=== PATIENT | female | born 1980 | race Caucasian/White ===

== ENCOUNTER 2023-11-22 07:42 | Day surgery (SDC) | payer BC, SELFPAY ==
[2023-11-16 14:26] LABS: Hematocrit 43.3 % (37-47); Hemoglobin 13.8 g/dL (12.0-15.0); Mean Corp Hgb Conc 31.9 g/dL (32-36); Mean Platelet Vol. 9.8 fl (6.2-12.0); Platelet Count 359 K/mm3 (150-450); RBC Distribution Width CV 12.8 % (11.6-14.6); RBC Distribution Width SD 40.8 fl (35.1-43.9); Red Blood Count 4.92 M/mm3 (4.2-5.4); White Blood Count 7.3 K/mm3 (4.4-11.0)
[2023-11-16 14:47] LABS: Magnesium 2.1 mg/dL (1.6-2.6)
[2023-11-22] VITALS (10 sets, daily range): BP systolic 84–106; BP diastolic 46–92; PULSE 61–82; RESP 16; TEMP 36.1–36.8; O2SAT 97–100; BMI 26.7
--- OUTSIDE RECORDS SUMMARY | 2023-11-22 08:10 | XMS RPT_ITS | CCD ---
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 0.58 - 0.96 mg/dL Final Estimated Glomerular Filtration Rate Date Value Ref Range Status 07/11/2023 102 >=60 mL/min/1.73m? Final Comment: Estimated Glomerular Filtration Rate (eGFR) is calculated using the 2020 CKD-EPI creatinine equation. This equation utilizes serum creatinine, sex, and age as parameters. The creatinine assay has traceable calibration to isotope dilution-mass spectrometry. Refer to KDIGO guidelines for clinical interpretation. In patients with unstable renal function, e.g. those with acute kidney injury, the eGFR may not accurately reflect actual GFR. eGFR- Date Value Ref Range Status 01/05/2021 >60 Final P.O.C.T. RESULTS: POC done: Yes, See Lab Tab October 04, 2023 TREATMENT: N/A PERIPHERAL IV DATA: Ambulatory: A peripheral IV was started in the Left antecubital site with a Angio cath: 18 gauge. RADIOLOGY DEPARTMENT: CT; Exam(s) Completed: CTA Brain and CTA Neck SIGNATURE: RT Rigoberto(R) PATIENT NAME: Merlene Hdz DATE: October 04, 2023 TIME: 4:18 PM [facility] 10-04-2023 History of Presen t illness Narrative Radiology Service Progress Note DATE OF SERVICE: October 04, 2023 TIME: 4:18 PM PATIENT IDENTITY VERIFICATION COMPLETED USING TWO (2) STANDARD IDENTIFIERS: Name and Date of confirmed by patient verbally. FALL SCREENING: Has the patient had 2 falls in the last year or 1 fall with injury or currently using an Ambulatory Assistive Device (Walker, Cane, Wheelchair, Crutches, etc.)? No PATIENT GENDER DATA: Female. status: : No status: NO. PATIENT RELEVANT IMPLANT DATA REVIEWED: Yes ALLERGIES: Reviewed and unchanged CONTRAST ALLERGY: NO. EXAM: CT -CONTRAST INDUCED NEPHROPATHY RISK FACTORS: Not applicable CREATININE: Creatinine Date Value Ref Range Status 07/11/2023 0.75 0.58 - 0.96 mg/dL Final 08/07/2022 0.78 0.58 - 0.96 mg/dL Final 01/05/2021 0.85 0.58 - 0.96 mg/dL Final Estimated Glomerular Filtration Rate Date Value Ref Range Status 07/11/2023 102 >=60 mL/min/1.73m Final Comment: Estimated Glomerular Filtration Rate (eGFR) is calculated using the 2020 CKD-EPI creatinine equation. This equation utilizes serum creatinine, sex, and age as parameters. The creatinine assay has traceable calibration to isotope dilution-mass spectrometry. Refer to KDIGO guidelines for clinical interpretation. In patients with unstable renal function, e.g. those with acute kidney injury, the eGFR may not accurately reflect actual GFR. eGFR- Date Value Ref Range Status 01/05/2021 >60 Final P.O.C.T. RESULTS: POC done: Yes, See Lab Tab October 04, 2023 TREATMENT: N/A PERIPHERAL IV DATA: Ambulatory: A peripheral IV was started in the Left antecubital site with a Angio cath: 18 gauge. RADIOLOGY DEPARTMENT: CT; Exam(s) Completed: CTA Brain and CTA Neck SIGNATURE: RT Rigoberto(R) PATIENT NAME: Merlene Hdz DATE: October 04, 2023 TIME: 4:18 PM documented in this encounter [facility] 10-03-2023 Note HNO ID: [id number] Author: Ines Wylie MD Service: ? Author Type: Physician Type: Progress Notes Filed: 10/03/2023 10:57 AM Note Text: Merlene is a 43 year old who presents today for an endometrial biopsy for abnormal uterine bleeding. test: negative UNIVERSAL PROTOCOL / SAFETY CHECKLIST Procedure to be Performed: endometrial biopsy Sign In: A Moment of CARE was completed. Personnel directly involved with the procedure wore the appropriate PPE (Personal Protective Equipment). Patient/Surrogate Stated/Verified: PATIENT VERIFIED(optional for EMERGENT procedures): Patient name, Date of , Relevant allergies, and The intended procedure Time Out Communication: Intended patient and procedure match the source documents. Consent documented and matches the intended procedure. Relevant labs, photos, and/or imaging studies have been reviewed. Sign Out: SIGN OUT (optional for EMERGENT procedures): All specimen containers correctly labeled. All instruments, equipment, possible retained foreign bodies accounted for. Post-procedure follow-up management communicated and Plan of Care Visit completed when applicable. Ines Wylie M.D. PROCEDURE: EXTERNAL GENITALIA: Normal in appearance without lesions VAGINA: Normal in appearance without lesions BIOPSY: Speculum placed into the vagina with excellent visualization of the cervix. Cervix cleaned with betadine. Anterior lip of cervix grasped with single toothed tenaculum. Uterus sounded to 8 cm. Pipelle inserted into the uterus without difficulty and endometrial biopsy obtained. Specimen labeled and sent to pathology. Procedure Summary: Patient tolerated procedure well. ASSESSMENT: abnormal uterine bleeding PLAN: Specimens labeled and sent to Pathology. Will notify patient of results in 1-2 weeks. Post-procedure instructions reviewed and written material given to the patient. consult to urogyn for prolapse, plans hyst for heavy bleeding but I d/w her may need some prolapse repair also Ines Wylie MD [facility] 10-03-2023 Note HNO ID: [id number] Author: Mckenzie Jung RDMS Service: ? Author Type: Commercial Intelligence Manager Type: Progress Notes Filed: 10/03/2023 4:16 PM Note Text: Radiology Service Progress Note PATIENT NAME: Merlene Hdz DATE OF SERVICE: October 03, 2023 TIME: 4:16 PM PATIENT IDENTITY VERIFICATION COMPLETED USING TWO (2) IDENTIFIERS: Name and Date of confirmed by patient verbally. FALL SCREENING: Has the patient had 2 falls in the last year or 1 fall with injury or currently using an Ambulatory Assistive Device (Walker, Cane, Wheelchair, Crutches, etc.)? No PATIENT GENDER DATA: Female. status: : No status: NO. PATIENT RELEVANT IMPLANT DATA REVIEWED: Not Applicable RADIOLOGY DEPARTMENT: Ultrasound PERIPHERAL IV DATA: Not applicable SIGNED BY: Mckenzie Jung RDMS RVT October 03, 2023 4:16 PM [facility] 10-03-2023 Instructions Nguyne Mckeon Ma - 10/03/2023 10:23 AM EST YOUR RECOVERY After your biopsy you may have: Vaginal bleeding (less than a normal menstrual period) Mild cramping Do NOT put anything in the vagina for 1 week after your endometrial biopsy. This includes: tampons douches and refraining from having sexual intercourse If you have any discomfort, you may take an over the counter pain medication (motrin, advil, ibuprofen, tylenol, etc). If this does not relieve your discomfort, contact the office. It is okay to wear a sanitary pad until the discharge and spotting stops. RISKS Although problems seldom occur with endometrial biopsies, there can be some complications. You may feel faint during and shortly after the procedure as well as have some bleeding after the procedure. There is also a risk of infection after the procedure. These complications are rare and can be easily treated. You should contact you doctor is you have any of the following: Heavy bleeding (more than your normal period) Bleeding with clots Severe abdominal pain Fever (more than 100.4F) Foul smelling vaginal discharge RESULTS We will have the results of your biopsy in 1-2 weeks. If you do not hear the results of your biopsy after 2 weeks, please contact the office for the results. If you have any additional questions or concerns please do not hesitate to contact the office. documented in this encounter [facility] 10-03-2023 History of Presen t illness Narrative Merlene is a 43 year old who presents today for an endometrial biopsy for abnormal uterine bleeding. test: negative UNIVERSAL PROTOCOL / SAFETY CHECKLIST Procedure to be Performed: endometrial biopsy Sign In: A Moment of CARE was completed. Personnel directly involved with the procedure wore the appropriate PPE (Personal Protective Equipment). Patient/Surrogate Stated/Verified: PATIENT VERIFIED(optional for EMERGENT procedures): Patient name, Date of , Relevant allergies, and The intended procedure Time Out Communication: Intended patient and procedure match the source documents. Consent documented and matches the intended procedure. Relevant labs, photos, and/or imaging studies have been reviewed. Sign Out: SIGN OUT (optional for EMERGENT procedures): All specimen containers correctly labeled. All instruments, equipment, possible retained foreign bodies accounted for. Post-procedure follow-up management communicated and Plan of Care Visit completed when applicable. Ines Wylie M.D. PROCEDURE: EXTERNAL GENITALIA: Normal in appearance without lesions VAGINA: Normal in appearance without lesions BIOPSY: Speculum placed into the vagina with excellent visualization of the cervix. Cervix cleaned with betadine. Anterior lip of cervix grasped with single toothed tenaculum. Uterus sounded to 8 cm. Pipelle inserted into the uterus without difficulty and endometrial biopsy obtained. Specimen labeled and sent to pathology. Procedure Summary: Patient tolerated procedure well. ASSESSMENT: abnormal uterine bleeding PLAN: Specimens labeled and sent to Pathology. Will notify patient of results in 1-2 weeks. Post-procedure instructions reviewed and written material given to the patient. consult to urogyn for prolapse, plans hyst for heavy bleeding but I d/w her may need some prolapse repair also Ines Wylie MD documented in this encounter [facility] 10-03-2023 History of Presen t illness Narrative Radiology Service Progress Note PATIENT NAME: Merlene Hdz DATE OF SERVICE: October 03, 2023 TIME: 4:16 PM PATIENT IDENTITY VERIFICATION COMPLETED USING TWO (2) IDENTIFIERS: Name and Date of confirmed by patient verbally. FALL SCREENING: Has the patient had 2 falls in the last year or 1 fall with injury or currently using an Ambulatory Assistive Device (Walker, Cane, Wheelchair, Crutches, etc.)? No PATIENT GENDER DATA: Female. status: : No status: NO. PATIENT RELEVANT IMPLANT DATA REVIEWED: Not Applicable RADIOLOGY DEPARTMENT: Ultrasound PERIPHERAL IV DATA: Not applicable SIGNED BY: Mckenzie Jung RDMS T October 03, 2023 4:16 PM documented in this encounter [facility] 09-10-2023 Note HNO ID: [id number] Author: Ines Wylie MD Service: ? Author Type: Physician Type: Progress Notes Filed: 09/10/2023 8:49 AM Note Text: Merlene is a 43 year old who presents for an annual gynecologic exam without complaints for hand mixer. Had breast f/u mammogram and next f/u in 6 months. Some pelvic pressure and fee3ls like prolapse is a little worse Has had some unusual METZ and sensation but now has to get f/u for a cyst in the brain. Menses: cycles every 28 days and 7 days of flow. 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 Depression (non-psychotic) Endometriosis history of ruptured lesion on ovary many years ago Lump or mass in breast Mastitis Seasonal allergies PAST SURGICAL HISTORY Procedure Laterality Date BX BREAST PERC NEED W/GUID 04/24/2012 U/S needle core outer mid right breast COLPOSCOPY CERVIX UPPER/ADJACENT VAGINA Colposcopy LAPS SURG CHOLECYSTECTOMY W/CHOLANGIOGRAPHY 10/29/2012 PAST SURGICAL HISTORY OF WISDOM TEETH PAST SURGICAL HISTORY OF Bilateral skin lesion leg, pea-sized lesion SKIN SURGERY HX Right distal anterior thigh, likely a lipoma FAMILY HISTORY Problem Relation Age of Onset No Known Problems Mother Diabetes Father Hypertension Father Coronary Artery Disease Father Heart Father Colon Cancer Father age 70, stage 3, in remission other (Adelia Gehrig) Maternal Grandmother Heart disease Maternal Grandfather Heart disease Paternal Grandmother Breast Cancer Paternal Aunt 40 SOCIAL HISTORY Social History Tobacco Use Smoking status: Never Smokeless tobacco: Never Vaping Use Vaping Use: Never used Substance Use Topics Alcohol use: Yes Comment: very rarely Drug use: No REVIEW OF SYSTEMS Abdomen: No abdominal pain, nausea, vomiting, diarrhea, or constipation. No bloating, early satiety, indigestion, or increased flatulence. Bladder: No dysuria, gross hematuria, urinary frequency, urinary urgency, or incontinence. Breast: No breast lumps, nipple d/c, overlying skin changes, redness or skin retraction. Allergies and current medication updated:Yes EXAM: BP 102/68 Ht 5' 2 (1.58m) Wt 141 lb (64.0kg) LMP 09/02/2023 BMI 25.78 kg/(m2). GENERAL: pleasant, female in no apparent distress HEENT: Normocephalic, atraumatic, mucus membranes moist, and no lesions NECK: Supple, full range of motion, no adenopathy, and thyroid normal DERMATOLOGY: Normal, without lesions, non-icteric, and non-hirsute BREAST: soft, non-tender, symmetric, no dominant mass, normal nipple-areolar complex, no lymphadenopathy, and no nipple discharge CHEST: Normal inspiratory effort ABDOMEN: soft, non-tender, and no masses PELVIC: external genitalia normal, normal Bartholin's glands, urethra, [place]'s glands, no vulvar lesions, no cervical lesions, physiologic discharge present, normal appearing perineal body and perianal region, cystocele 2nd degree, cervical prolapse 2nd degree BIMANUAL: uterus normal size, shape and consistency, no adnexal masses, and non-tender RECTOVAGINAL: deferred. NEURO: alert and oriented x3,exam grossly non-focal EXTREMITIES: normal ASSESSMENT/PLAN: 1) Health maintenance: Pap done with HPV. Mammogram ordered. 2) Contraception: vasectomy. Contraceptive options reviewed and information provided. 3) STD screening: Declined STD check. 4) Follow up one year or sooner as needed Ines Wylie MD [facility] 09-10-2023 History of Presen t illness Narrative Merlene is a 43 year old who presents for an annual gynecologic exam without complaints for hand mixer. Had breast f/u mammogram and next f/u in 6 months. Some pelvic pressure and fee3ls like prolapse is a little worse Has had some unusual METZ and sensation but now has to get f/u for a cyst in the brain. Menses: cycles every 28 days and 7 days of flow. 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 Depression (non-psychotic) Endometriosis history of ruptured lesion on ovary many years ago Lump or mass in breast Mastitis Seasonal allergies PAST SURGICAL HISTORY Procedure Laterality Date BX BREAST PERC NEED W/GUID 04/24/2012 U/S needle core outer mid right breast COLPOSCOPY CERVIX UPPER/ADJACENT VAGINA Colposcopy LAPS SURG CHOLECYSTECTOMY W/CHOLANGIOGRAPHY 10/29/2012 PAST SURGICAL HISTORY OF WISDOM TEETH PAST SURGICAL HISTORY OF Bilateral skin lesion leg, pea-sized lesion SKIN SURGERY HX Right distal anterior thigh, likely a lipoma FAMILY HISTORY Problem Relation Age of Onset No Known Problems Mother Diabetes Father Hypertension Father Coronary Artery Disease Father Heart Father Colon Cancer Father age 70, stage 3, in remission other (Adelia Gehrig) Maternal Grandmother Heart disease Maternal Grandfather Heart disease Paternal Grandmother Breast Cancer Paternal Aunt 40 SOCIAL HISTORY Social History Tobacco Use Smoking status: Never Smokeless tobacco: Never Vaping Use Vaping Use: Never used Substance Use Topics Alcohol use: Yes Comment: very rarely Drug use: No REVIEW OF SYSTEMS Abdomen: No abdominal pain, nausea, vomiting, diarrhea, or constipation. No bloating, early satiety, indigestion, or increased flatulence. Bladder: No dysuria, gross hematuria, urinary frequency, urinary urgency, or incontinence. Breast: No breast lumps, nipple d/c, overlying skin changes, redness or skin retraction. Allergies and current medication updated:Yes EXAM: BP 102/68 Ht 5' 2 (1.58m) Wt 141 lb (64.0kg) LMP 09/02/2023 BMI 25.78 kg/(m^2). GENERAL: pleasant, female in no apparent distress HEENT: Normocephalic, atraumatic, mucus membranes moist, and no lesions NECK: Supple, full range of motion, no adenopathy, and thyroid normal DERMATOLOGY: Normal, without lesions, non-icteric, and non-hirsute BREAST: soft, non-tender, symmetric, no dominant mass, normal nipple-areolar complex, no lymphadenopathy, and no nipple discharge CHEST: Normal inspiratory effort ABDOMEN: soft, non-tender, and no masses PELVIC: external genitalia normal, normal Bartholin's glands, urethra, [place]'s glands, no vulvar lesions, no cervical lesions, physiologic discharge present, normal appearing perineal body and perianal region, cystocele 2nd degree, cervical prolapse 2nd degree BIMANUAL: uterus normal size, shape and consistency, no adnexal masses, and non-tender RECTOVAGINAL: deferred. NEURO: alert and oriented x3,exam grossly non-focal EXTREMITIES: normal ASSESSMENT/PLAN: 1) Health maintenance: Pap done with HPV. Mammogram ordered. 2) Contraception: vasectomy. Contraceptive options reviewed and information provided. 3) STD screening: Declined STD check. 4) Follow up one year or sooner as needed Ines Wylie MD documented in this encounter [facility] 09-04-2023 Note HNO ID: [id number] Author: Mckenzie Jung RDMS Service: ? Author Type: Commercial Intelligence Manager Type: Progress Notes Filed: 09/04/2023 3:14 PM Note Text: Radiology Service Progress Note PATIENT NAME: Merlene Hdz DATE OF SERVICE: September 04, 2023 TIME: 3:14 PM PATIENT IDENTITY VERIFICATION COMPLETED USING TWO (2) IDENTIFIERS: Name and Date of confirmed by patient verbally. FALL SCREENING: Has the patient had 2 falls in the last year or 1 fall with injury or currently using an Ambulatory Assistive Device (Walker, Cane, Wheelchair, Crutches, etc.)? No PATIENT GENDER DATA: Female. status: : No status: NO. PATIENT RELEVANT IMPLANT DATA REVIEWED: Not Applicable RADIOLOGY DEPARTMENT: Ultrasound PERIPHERAL IV DATA: Not applicable SIGNED BY: Mckenzie Jung RDMS RVT September 04, 2023 3:14 PM [facility] 09-04-2023 Miscellaneous Notes Mammogram appeared ok. They would like repeat views in six months to ensure is ok. Orders placed documented in this encounter [facility] 08-30-2023 Note HNO ID: [id number] Author: Kendra Fair APRN.STILL PHOTOGRAPHER Service: ? Author Type: Nurse Practitioner Type: Progress Notes Filed: 08/30/2023 9:00 AM Note Text: Authorization [id number] for CTA neck Given the fact nothing was palpable on exam the note said rule out vascular cause the CT soft tissue of the neck was not approved, but the reviewer did approve a CTA of the neck. Dr. Jones-If you want this it will have to be reordered. The reviewer did recommend if you want to rule out a soft tissue mass then ultrasound soft tissue neck would be appropriate. Patient Information Patient Last Name Wilder Patient First Name Merlene Date of 1980 Clinical Clearance / Financial Clearance Status Pending Clinical Clearance Notifications are supported by our caleb policy and used when an immediate payer source is not available. The CCN process can allow cases to be completed while still working to obtain payer?s authorization due to urgency or medical necessity. This process should not preclude us from completing the steps needed to secure authorization such us P2P and appeal as this will still allow us to receive the appropriate reimbursement. Denial Overview Denial Type Payer Clinical Guidelines Not Met Denial Rationale [id number] NECK SOFT TISSUE W IVCON Your doctor told us that you have neck pain. Your doctor ordered a CT scan of your neck. A CT is a way to take pictures of the inside of your body. This test should be used when your doctor is looking for certain conditions. These might include certain infections or tumors. We reviewed the notes we have. The notes do not show that your doctor is looking for one of these conditions. Based on the information we have, this test is not medically necessary. [id number] CHEST W IVCON Your doctor told us that you have chest pain. Your doctor ordered a CT scan of your chest. A CT is a way to take pictures of the inside of your body. This test should be used when your doctor is looking for a specific condition. These conditions might include a collapsed lung or fluid collection around the lungs. We reviewed the notes we have. The notes do not show that your doctor is looking for one of these conditions. Based on the information we have, this test is not medically necessary. We used [facility] Medical Benefits Management Clinical Guideline titled Imaging of the Chest to make this decision. You may view this guideline at [email or web address]- radiology. Date of Service 09/12/2023 Is Peer to Peer Available? (Instructions below) Yes Peer to Peer Deadline 30 calendar days from denial date on: 08/27/2023 Appeal Deadline (Instructions below) 180 calendar days from the denial date on: 08/27/2023 Insurance Case Information Insurance Name Jean Patient's Insurance Case# [id number] Ordering Provider ALICIA JONES Approved Services N/A Denied Services [id number] NECK SOFT TISSUE W IVCON [id number] CHEST W IVCON Alternative Recommendation N/A *Service which can be approved in place of denied service. Clinical Documentation Provided Not listed. Peer to Peer Instructions Peer to Peer Does Peer to Peer need to be scheduled? No, it can be done right away Who can complete the Peer to Peer? , PA, HOUSE[employer]OLD RE[employer]ATION MECHANIC, LN Additional Peer to Peer Instructions You can call for the peer to peer at the date and time of your convenience Appeal Instructions Appeal Ph#: [phone]: Ask to be transferred to appeals department and leave a voice mail requesting a call back to initiate the appeals process. Leave Member ID, NAME and along with contact name and call back number and nurse in the appeals team will call back. Appeal Required Form(s) No. Additional Appeal Instructions Appeal needs to be initiated by phone first. If required, when sending the fax, send it attention to: Appeals department. Include: coversheet with patient's and case information, a formal appeal letter and attach any pertinent supporting clinical documentation. Facility Information Location [facility] [id number] Tax ID# [facility] 08-30-2023 History of Presen t illness Narrative Authorization [id number] for CTA neck Given the fact nothing was palpable on exam the note said rule out vascular cause the CT soft tissue of the neck was not approved, but the reviewer did approve a CTA of the neck. Dr. Jones-If you want this it will have to be reordered. The reviewer did recommend if you want to rule out a soft tissue mass then ultrasound soft tissue neck would be appropriate. Patient Information Patient Last Name Wilder Patient First Name Merlene Date of 1980 Clinical Clearance / Financial Clearance Status Pending Clinical Clearance Notifications are supported by our caleb policy and used when an immediate payer source is not available. The CCN process can allow cases to be completed while still working to obtain payer s authorization due to urgency or medical necessity. This process should not preclude us from completing the steps needed to secure authorization such us P2P and appeal as this will still allow us to receive the appropriate reimbursement. Denial Overview Denial Type Payer Clinical Guidelines Not Met Denial Rationale [id number] NECK SOFT TISSUE W IVCON Your doctor told us that you have neck pain. Your doctor ordered a CT scan of your neck. A CT is a way to take pictures of the inside of your body. This test should be used when your doctor is looking for certain conditions. These might include certain infections or tumors. We reviewed the notes we have. The notes do not show that your doctor is looking for one of these conditions. Based on the information we have, this test is not medically necessary. [id number] CHEST W IVCON Your doctor told us that you have chest pain. Your doctor ordered a CT scan of your chest. A CT is a way to take pictures of the inside of your body. This test should be used when your doctor is looking for a specific condition. These conditions might include a collapsed lung or fluid collection around the lungs. We reviewed the notes we have. The notes do not show that your doctor is looking for one of these conditions. Based on the information we have, this test is not medically necessary. We used [facility] Benefits Management Clinical Guideline titled Imaging of the Chest to make this decision. You may view this guideline at [email or web address]- radiology. Date of Service 09/12/2023 Is Peer to Peer Available? (Instructions below) Yes Peer to Peer Deadline 30 calendar days from denial date on: 08/27/2023 Appeal Deadline (Instructions below) 180 calendar days from the denial date on: 08/27/2023 Insurance Case Information Insurance Name Jean Patient's Insurance Case# [id number] Ordering Provider ALICIA JONES Approved Services N/A Denied Services [id number] NECK SOFT TISSUE W IVCON [id number] CHEST W IVCON Alternative Recommendation N/A *Service which can be approved in place of denied service. Clinical Documentation Provided Not listed. Peer to Peer Instructions Peer to Peer Does Peer to Peer need to be scheduled? No, it can be done right away Who can complete the Peer to Peer? Dr, PA, [employer]IC, LN Additional Peer to Peer Instructions You can call for the peer to peer at the date and time of your convenience Appeal Instructions Appeal Ph#: [phone]: Ask to be transferred to appeals department and leave a voice mail requesting a call back to initiate the appeals process. Leave Member ID, NAME and along with contact name and call back number and nurse in the appeals team will call back. Appeal Required Form(s) No. Additional Appeal Instructions Appeal needs to be initiated by phone first. If required, when sending the fax, send it attention to: Appeals department. Include: coversheet with patient's and case information, a formal appeal letter and attach any pertinent supporting clinical documentation. Facility Information Location [facility] [id number] Tax ID# documented in this encounter [facility] 08-15-2023 Note HNO ID: [id number] Author: Alicia Jones MD Service: ? 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 She presented with increased pressure sensation in the R neck into the head, not described as a headache. She also noted some pressure in the right upper chest. She also blurred vision in the morning worse with menses to her PCP Dr. Wahl on 07/11/2023. 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 She was referred to neurosurgery and via triage is routed instead to Neuro-Oncology. Had CT Head in 2004 but images are not available for review. Feels her balance has been off. She notes AM blurry vision goes away after being up for a while. Typically doesn't get headaches unless allergy-related. She has had that pressure in the R neck since at least May 2023. Feels like her head is going to pop off, like someone is squeezing her, nothing ameliorates it. Frequency of this is NOT related to menses, as she didn't have it with last cycle. Might be walking and then gets it, doesn't interfere with walking. Lasts no more than a day. One night it woke her up. Sometimes feels pressure in chest, maybe muscular. Uses heating pad daily for neck strain. PAST MEDICAL HISTORY Diagnosis Date Abnormal glandular Papanicolaou smear of cervix 2002 Abn. 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, required blood patch x 2 Dysthymic disorder Depression (non-psychotic) Endometriosis history of ruptured lesion on ovary many years ago Lump or mass in breast Mastitis Seasonal allergies PAST SURGICAL HISTORY Procedure Laterality Date BX BREAST PERC NEED W/GUID 04/24/2012 U/S needle core outer mid right breast COLPOSCOPY CERVIX UPPER/ADJACENT VAGINA Colposcopy LAPS SURG CHOLECYSTECTOMY W/CHOLANGIOGRAPHY 10/29/2012 PAST SURGICAL HISTORY OF WISDOM TEETH PAST SURGICAL HISTORY OF Bilateral skin lesion leg, pea-sized lesion SKIN SURGERY HX Right distal anterior thigh, likely a lipoma FAMILY HISTORY Problem Relation Age of Onset No Known Problems Mother Diabetes Father Hypertension Father Coronary Artery Disease Father Heart Father Colon Cancer Father age 70, stage 3, [facility] remission [facility] Maternal Grandmother Heart disease Maternal Grandfather Heart disease Paternal Grandmother Breast Cancer Paternal Aunt 40 SOCIAL HISTORY Never smoker. 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 Has two daughters and . MEDS Current Outpatient Medications on File Prior to Visit Medication Sig dextroamphetamine-amphetamine (ADDERALL) 5 mg tablet Take 1 tablet by mouth twice daily for 30 days. ALLERGIES Allergen Reactions Hayfever [Homeopath* Vit E Lotion [Other] PHYSICAL EXAM 08/15/23 0814 BP: 120/87 Pulse: 73 Resp: 18 Temp: 36.7 ?C (98 ?F) TempSrc: Oral SpO2: 99% Weight: 62.6 kg (138 lb) Height: 157.5 cm (5' 2.01 ) Body surface area is 1.65 meters squared. General: well appearing HEENT: anicteric, moist mucous membranes, without thrush. No cervical, supraclavicular, submandibular, or preotic lymphadenopathy. Cardiovascular: regular rate, extremities are warm and well perfused Abdomen: soft, Extremities: symmetric, without edema Other: no abnormality or tenderness at R chest site reported in history Neurologic: Mental status: alert and oriented. Language intact. Memory grossly intact. C.N. 2-12: Pupils are equal, round, and reactive to light. Extraocular movements intact. Facial sensation intact to light touch V1-V3. Face is symmetric. Visual landeros intact x 4. Hearing grossly intact. Tongue and palate are midline. Shoulder shrug/SCM 5/5 strength. Motor: R UExt 5/5 R LExt 5/5. ROM for R arm normal during exam. L UExt 5/5 L LExt 5/5 Sensation: normal to light touch throughout Deep tendon reflexes: 2+ in the biceps and patellar deep tendons Rapid alternating movements intact. Finger to nose: no dysmetria bilaterally. Gait: normal base, normal armswing LABS WBC (k/uL) Date Value 07/11/2023 5.91 RBC (m/uL) Date Value 07/11/2023 4.64 Hemoglobin (g/dL) Date Value 07/11/2023 13.4 Hematocrit (%) Date Value 07/11/2023 40.8 MCV (fL) Date Value 07/11/2023 87.9 MCH (pg) Date Value 07/11/2023 28.9 MCHC (g/dL) Date Value 07/11/2023 32.8 RDW-CV (%) Date Value 07/11/2023 13.2 Platelet Count (k/uL) Date Value 07/11/2023 329 MPV (fL) Date Value 07/11/2023 11.1 Glucose (mg/dL) Date Ania (more content not included)... [facility] 08-13-2023 Miscellaneous Notes Spoke to Pt, she is scheduled and confirmed for... Appt with on 08/15/2023 at 11:30 AM. Time Frame: Next available Provider: Ra Jones Dhawan Referring: Dr. Yue Wahl Dx: 7 mm subependymal nodule in the atria of the right lateral ventricle 7 mm subependymal nodule in the atria of the right lateral ventricle seen on MRI from 08/08/23 during work up for atypical headaches. Kendra Fair APRN.AVRIL 08/08/2023 3:58 PM [facility] Order Providers Authorizing Provider Encounter Provider Yue Wahl MD Lago, William J, MD Future Order Information Expires 08/07/24 Associated Diagnoses Brain mass [G93.89] Reason for Exam Priority: Routine Dx: Brain mass [G93.89 (ICD-10-CM)] Order Questions Question Answer [facility] Brain Tumor [facility] Epic access? Yes Reason For Visit nodule on MRI documented in this encounter [facility] 08-09-2023 Miscellaneous Notes Internal---Received a call from Patient DxBrain mass [G93.89] phone [phone] sent to triage team. Dr. Vish Larry is referring. documented in this encounter [facility] 08-08-2023 Note HNO ID: [id number] Author: Catie Krishnan CT Service: Radiology Author Type: [employer] Teacher Type: Progress Notes Filed: 08/08/2023 1:03 PM Note Text: Radiology Service Progress Note PATIENT NAME: Merlene Hdz DATE OF SERVICE: August 08, 2023 TIME: 1:02 PM PATIENT IDENTITY VERIFICATION COMPLETED USING TWO (2) IDENTIFIERS: Name and Date of confirmed by patient verbally. FALL SCREENING: Has the patient had 2 falls in the last year or 1 fall with injury or currently using an Ambulatory Assistive Device (Walker, Cane, Wheelchair, Crutches, etc.)? No PATIENT GENDER DATA: Female. status: : No status: NO. PATIENT RELEVANT IMPLANT DATA REVIEWED: Yes RADIOLOGY DEPARTMENT: MR; Exam(s) Completed: Head: Routine Brain PERIPHERAL IV DATA: Site assessment: Clean,Dry and Intact, Site disposition Discontinued SIGNED BY: MALIK Leiva August 08, 2023 1:02 PM [facility] 08-08-2023 Miscellaneous Notes August 09, 2023 PID: [id number] Merlene Hdz [address] [place] [address] Dear Ms. Hdz, Your recent breast imaging exam on 08/07/2023 showed a possible finding that requires additional imaging studies for a complete evaluation. Most such findings are probably benign (not cancer). Your mammogram demonstrates that you have dense breast tissue, which could hide abnormalities. Dense breast tissue, in and of itself, is a relatively common condition. Therefore, this information is not provided to cause undue concern; rather, it is to raise your awareness and promote discussion with your health care provider regarding the presence of dense breast tissue in addition to other risk factors. If you have a healthcare provider who ordered/prescribed your screening mammogram: Please call [phone] or [phone]: [phone] to schedule an appointment for your additional imaging (if you have not already done so). If you DO NOT have a healthcare provider (ie you did not have an order/prescription for your screening mammogram): Please call to schedule an appointment for your additional imaging (if you have not already done so). You must have an order/prescription from your physician when calling to schedule your appointment. If your order/prescription is not electronic, you must bring the hard copy with you on the day of your exam to avoid delays. Your imaging studies and reports are kept on file at [facility] as part of your permanent medical record, and are available for your continuing care. Thank you for allowing us to help in meeting your health care needs. Sincerely, Dr. Lee Interpreting Radiologist [facility] (Additional imaging) documented in this encounter [facility] 08-08-2023 History of Presen t illness Narrative Radiology Service Progress Note PATIENT NAME: Merlene Hdz DATE OF SERVICE: August 08, 2023 TIME: 1:02 PM PATIENT IDENTITY VERIFICATION COMPLETED USING TWO (2) IDENTIFIERS: Name and Date of confirmed by patient verbally. FALL SCREENING: Has the patient had 2 falls in the last year or 1 fall with injury or currently using an Ambulatory Assistive Device (Walker, Cane, Wheelchair, Crutches, etc.)? No PATIENT GENDER DATA: Female. status: : No status: NO. PATIENT RELEVANT IMPLANT DATA REVIEWED: Yes RADIOLOGY DEPARTMENT: MR; Exam(s) Completed: Head: Routine Brain PERIPHERAL IV DATA: Site assessment: Clean,Dry and Intact, Site disposition Discontinued SIGNED BY: MALIK Leiva August 08, 2023 1:02 PM documented in this encounter [facility] 08-08-2023 Nurse Note Radiology Service Progress Note DATE OF SERVICE: August 08, 2023 TIME: 1:06 PM PATIENT WEIGHT: 137 LBS PATIENT IDENTITY VERIFICATION COMPLETED USING TWO (2) STANDARD IDENTIFIERS: Name and Date of confirmed by patient verbally. FALL SCREENING: Has the patient had 2 falls in the last year or 1 fall with injury or currently using an Ambulatory Assistive Device (Walker, Cane, Wheelchair, Crutches, etc.)? No PATIENT GENDER DATA: Female. status: : No status: NO. ALLERGIES: Reviewed and unchanged CONTRAST ALLERGY: No EXAM: MRI - CONTRAST TYPE: GROUP II IV SITE: Ambulatory: A peripheral IV was started in the Right antecubital site with a Angio cath: 22 gauge. IV SITE APPEARANCE: Clean,Dry and Intact SIGNATURE: Glendy Stratton RN PATIENT NAME: Merlene Hdz DATE: August 08, 2023 TIME: 1:06 PM documented in this encounter [facility] 08-07-2023 Note HNO ID: [id number] Author: Marci Fox Mammo Tech Service: ? Author Type: [employer] Teacher Type: Progress Notes Filed: 08/07/2023 2:52 PM Note Text: Radiology Service Progress Note PATIENT NAME: Merlene Hdz DATE OF SERVICE: August 07, 2023 TIME: 2:27 PM PATIENT IDENTITY VERIFICATION COMPLETED USING TWO (2) IDENTIFIERS: Name and Date of confirmed by patient verbally. FALL SCREENING: Has the patient had 2 falls in the last year or 1 fall with injury or currently using an Ambulatory Assistive Device (Walker, Cane, Wheelchair, Crutches, etc.)? No PATIENT GENDER DATA: Female. status: : No status: NO. PATIENT RELEVANT IMPLANT DATA REVIEWED: Not Applicable RADIOLOGY DEPARTMENT: Mammography PERIPHERAL IV DATA: Not applicable SIGNED BY: Alisa Petersen August 07, 2023 2:27 PM [facility] 08-07-2023 Miscellaneous Notes Detailed message left for pt No need to wait as long as no surgical clip to christy biopsy was placed in past. Thanks, Abram Holly PA-C MRI is magnetic, not radiation if that is her concern. Pt calling to check on the following. Pt had an MRI done on 08-03-23 and has another one scheduled for 08/08/23. She has a mammogram scheduled for this afternoon. Is it okay to have this done or pt is asking if she should wait to have mammogram done. Please advise pt. Rosi Philippe LPN documented in this encounter [facility] 08-06-2023 Miscellaneous Notes PSS please help set up if patient has not already scheduled. Needs additional mri with contrast. Patient notified. Please set up. documented in this encounter [facility] 08-03-2023 Note HNO ID: [id number] Author: Kelly Aviles RT(R) Service: Radiology Author Type: Technologist Type: Progress Notes Filed: 08/03/2023 1:42 PM Note Text: Radiology Service Progress Note PATIENT NAME: Merlene Hdz DATE OF SERVICE: August 03, 2023 TIME: 1:42 PM PATIENT IDENTITY VERIFICATION COMPLETED USING TWO (2) IDENTIFIERS: Name and Date of confirmed by patient verbally and Name and Date of confirmed by identification band. FALL SCREENING: Has the patient had 2 falls in the last year or 1 fall with injury or currently using an Ambulatory Assistive Device (Walker, Cane, Wheelchair, Crutches, etc.)? No PATIENT GENDER DATA: Female. status: : No status: NO. PATIENT RELEVANT IMPLANT DATA REVIEWED: Yes RADIOLOGY DEPARTMENT: MR; Exam(s) Completed: Head: Routine Brain PERIPHERAL IV DATA: Not applicable SIGNED BY: RT Tono(R) August 03, 2023 1:42 PM [facility] 07-11-2023 Note HNO ID: [id number] Author: Surekha Braswell RT(R) Service: Radiology Author Type: Technologist Type: Progress Notes Filed: 07/11/2023 3:13 PM Note Text: Radiology Service Progress Note PATIENT NAME: Merlene Hdz DATE OF SERVICE: July 11, 2023 TIME: 2:59 PM PATIENT IDENTITY VERIFICATION COMPLETED USING TWO (2) IDENTIFIERS: Name and Date of confirmed by patient verbally. FALL SCREENING: Has the patient had 2 falls in the last year or 1 fall with injury or currently using an Ambulatory Assistive Device (Walker, Cane, Wheelchair, Crutches, etc.)? No PATIENT GENDER DATA: Female. status: : No status: NO. PATIENT RELEVANT IMPLANT DATA REVIEWED: Yes RADIOLOGY DEPARTMENT: General X-ray: Exam(s) Completed: Spine X-Ray(s): Cervical AP / LAT / OBL PERIPHERAL IV DATA: Not applicable SIGNED BY: RT Heri(R) July 11, 2023 2:59 PM [facility] 07-11-2023 Note HNO ID: [id number] Author: Yue Wahl MD Service: ? Author Type: Physician Type: Progress Notes Filed: 07/11/2023 2:32 PM Note Text: Patient presents with: Neck Pain: Necj pain and pressure in her head HPI: Patient presents today for office visit for an acute visit. Has had a few spells on and off for several months. Comes and goes. She wonders if some of it starts around her cycle. Feels like her head feels upside down like it is hanging off of a bed. Feels like blood is rushing to her head . Not a really a headache. Is not severe. Sometimes gets blurred vision with it in the am. That part lasts for 20 minutes. Does not get the vision issues with the head krishnamurthy . Looks like vision is wavery. Feels like if she rubs her eyes it would go away but does not. No head injury. No focal numbness or weakness. No speech issues. No flashes of light. No real changes with advil or aleve but it is not painful, just feels different. No memory issues that are new but does not feel out it. Does have chronic neck issues. No neck injury. She thinks it is due to bad posture. She saw chiropractic for the neck a few years ago. She does get occasional right sided chest discomfort. Wears a posture brace that irritates things. Feels like a straining. That is the side her neck bothers her. No radicular symptoms. Is sore to palpitation on her chest wall and shoulder. No left sided chest pain with exertion. No cough or shortness of breath. No pleuritic component. Does get chronic headaches MEDICATIONS: Current Outpatient Medications Medication Sig dextroamphetamine-amphetamine (ADDERALL) 5 mg tablet Take 1 tablet by mouth twice daily for 30 days. No current facility-administered medications for this visit. ALLERGIES: ALLERGIES Allergen Reactions Hayfever [Homeopath* Vit E Lotion [Other] PAST MEDICAL HISTORY Diagnosis Date Abnormal glandular Papanicolaou smear of cervix 2002 Abn. Pap smear (cervix) Dysthymic disorder Depression (non-psychotic) Lump or mass in breast Mastitis Seasonal allergies PAST SURGICAL HISTORY Procedure Laterality Date BX BREAST PERC NEED W/GUID 04/24/12 U/S needle core outer mid right breast COLPOSCOPY CERVIX UPPER/ADJACENT VAGINA Colposcopy LAPS SURG CHOLECYSTECTOMY W/CHOLANGIOGRAPHY 10/29/12 PAST SURGICAL HISTORY OF WISDOM TEETH PAST SURGICAL HISTORY OF skin lesion leg-- avm FAMILY HISTORY Problem Relation Age of Onset Diabetes Father Hypertension Father Coronary Artery Disease Father Heart Father Colon Cancer Father age 70 Cancer Maternal Grandmother Breast Cancer Paternal Aunt AND paternal GM - both in their 40's other (Other) Paternal Aunt No hand mixer cancer Social History Tobacco Use Smoking status: Never Smokeless tobacco: Never Substance Use Topics Alcohol use: Yes Comment: very rarely Drug use: No Reviewed current medications, allergies, past medical history, surgical history, family history and social history today. REVIEW OF SYSTEMS All other reviewed and negative other than HPI. VITALS: BP 122/72 Pulse 67 Resp 16 Wt 62.3 kg (137 lb 6.4 oz) LMP 02/14/2021 (Within Days) SpO2 98% BMI 25.13 kg/m? Last 4 Encounter Wt Readings: Date: Wt: 07/11/2023 62.3 kg (137 lb 6.4 oz) 02/20/2023 61.2 kg (135 lb) 05/09/2022 57.6 kg (127 lb) 03/11/2021 59 kg (130 lb) PHYSICAL EXAMINATION: General appearance: Well appearing, alert, in no acute distress, well-hydrated, well nourished. Skin: Skin color, texture, turgor normal, no suspicious rashes or lesions Head: Normocephalic, no masses, lesions, tenderness or abnormalities Eyes: Anicteric sclera. Pupils are equally round and reactive to light. Extraocular movements are intact. Ears: External ears normal, canals clear Nose/Sinuses: Nares normal, septum midline, mucosa normal, no drainage or sinus tenderness Oropharynx: Lips, mucosa, and tongue normal, teeth and gums normal, oropharynx normal Neck: Supple, no adenopathy; thyroid symmetric, normal size, no bruits Back: Normal exam Lungs: Lungs clear to auscultation. No wheezing, rhonchi, rales Heart: RRR without murmur, gallop, or rubs. No ectopy Abdomen: Normal abdominal exam, Abdomen soft, non-tender. Bowel sounds normal. No masses, organomegaly Extremities: No deformities, edema, skin discoloration, clubbing or cyanosis. Good capillary refill. Musculoskeletal: No joint swelling, deformity, or tenderness Peripheral pulses: Normal Neuro: Gait normal. Reflexes normal and symmetric. Sensation grossly intact., Negative findings: speech normal, mental status intact, muscle tone normal, muscle strength normal ASSESSMENT/PLAN: 1. Headache, unspecified headache type - ICD9: 784.0, ICD10: R51.9 (primary diagnosis) - atypical headache associated with vision changes, worse around menses but new. Do mri and see eye doc. - Red flags for re-assessment reviewed w (more content not included)... [facility] 07-11-2023 History of Presen t illness Narrative Patient presents with: Neck Pain: Necj pain and pressure in her head HPI: Patient presents today for office visit for an acute visit. Has had a few spells on and off for several months. Comes and goes. She wonders if some of it starts around her cycle. Feels like her head feels upside down like it is hanging off of a bed. Feels like blood is rushing to her head . Not a really a headache. Is not severe. Sometimes gets blurred vision with it in the am. That part lasts for 20 minutes. Does not get the vision issues with the head krishnamurthy . Looks like vision is wavery. Feels like if she rubs her eyes it would go away but does not. No head injury. No focal numbness or weakness. No speech issues. No flashes of light. No real changes with advil or aleve but it is not painful, just feels different. No memory issues that are new but does not feel out it. Does have chronic neck issues. No neck injury. She thinks it is due to bad posture. She saw chiropractic for the neck a few years ago. She does get occasional right sided chest discomfort. Wears a posture brace that irritates things. Feels like a straining. That is the side her neck bothers her. No radicular symptoms. Is sore to palpitation on her chest wall and shoulder. No left sided chest pain with exertion. No cough or shortness of breath. No pleuritic component. Does get chronic headaches MEDICATIONS: Current Outpatient Medications Medication Sig dextroamphetamine-amphetamine (ADDERALL) 5 mg tablet Take 1 tablet by mouth twice daily for 30 days. No current facility-administered medications for this visit. ALLERGIES: ALLERGIES Allergen Reactions Hayfever [Homeopath* Vit E Lotion [Other] PAST MEDICAL HISTORY Diagnosis Date Abnormal glandular Papanicolaou smear of cervix 2002 Abn. Pap smear (cervix) Dysthymic disorder Depression (non-psychotic) Lump or mass in breast Mastitis Seasonal allergies PAST SURGICAL HISTORY Procedure Laterality Date BX BREAST PERC NEED W/GUID 04/24/12 U/S needle core outer mid right breast COLPOSCOPY CERVIX UPPER/ADJACENT VAGINA Colposcopy LAPS SURG CHOLECYSTECTOMY W/CHOLANGIOGRAPHY 10/29/12 PAST SURGICAL HISTORY OF WISDOM TEETH PAST SURGICAL HISTORY OF skin lesion leg-- avm FAMILY HISTORY Problem Relation Age of Onset Diabetes Father Hypertension Father Coronary Artery Disease Father Heart Father Colon Cancer Father age 70 Cancer Maternal Grandmother Breast Cancer Paternal Aunt & paternal GM - both in their 40's other (Other) Paternal Aunt No hand mixer cancer Social History Tobacco Use Smoking status: Never Smokeless tobacco: Never Substance Use Topics Alcohol use: Yes Comment: very rarely Drug use: No Reviewed current medications, allergies, past medical history, surgical history, family history and social history today. REVIEW OF SYSTEMS All other reviewed and negative other than HPI. VITALS: BP 122/72 Pulse 67 Resp 16 Wt 62.3 kg (137 lb 6.4 oz) LMP 02/14/2021 (Within Days) SpO2 98% BMI 25.13 kg/m Last 4 Encounter Wt Readings: Date: Wt: 07/11/2023 62.3 kg (137 lb 6.4 oz) 02/20/2023 61.2 kg (135 lb) 05/09/2022 57.6 kg (127 lb) 03/11/2021 59 kg (130 lb) PHYSICAL EXAMINATION: General appearance: Well appearing, alert, in no acute distress, well-hydrated, well nourished. Skin: Skin color, texture, turgor normal, no suspicious rashes or lesions Head: Normocephalic, no masses, lesions, tenderness or abnormalities Eyes: Anicteric sclera. Pupils are equally round and reactive to light. Extraocular movements are intact. Ears: External ears normal, canals clear Nose/Sinuses: Nares normal, septum midline, mucosa normal, no drainage or sinus tenderness Oropharynx: Lips, mucosa, and tongue normal, teeth and gums normal, oropharynx normal Neck: Supple, no adenopathy; thyroid symmetric, normal size, no bruits Back: Normal exam Lungs: Lungs clear to auscultation. No wheezing, rhonchi, rales Heart: RRR without murmur, gallop, or rubs. No ectopy Abdomen: Normal abdominal exam, Abdomen soft, non-tender. Bowel sounds normal. No masses, organomegaly Extremities: No deformities, edema, skin discoloration, clubbing or cyanosis. Good capillary refill. Musculoskeletal: No joint swelling, deformity, or tenderness Peripheral pulses: Normal Neuro: Gait normal. Reflexes normal and symmetric. Sensation grossly intact., Negative findings: speech normal, mental status intact, muscle tone normal, muscle strength normal ASSESSMENT/PLAN: 1. Headache, unspecified headache type - ICD9: 784.0, ICD10: R51.9 (primary diagnosis) - atypical headache associated with vision changes, worse around menses but new. Do mri and see eye doc. - Red flags for re-assessment reviewed with patient in detail. - nsaid and caffeine prn if recurs. - CBC + DIFF - BASIC METABOLIC PNL - SED RATE WESTERGREN - TSH BLD - MRI BRAIN WO IVCON 2. Blurred vision - ICD9: 368.8, ICD10: H53.8 - as above. - CBC + DIFF - BASIC METABOLIC PNL - SED RATE WESTERGREN - TSH BLD - MRI BRAIN WO IVCON 3. Neck pain - ICD9: 723.1, ICD10: M54.2 - check xray. Consider therapy. Hold on brace. - XR CERV OTHER 4V AP/LAT/OBL 4. Chest wall pain - ICD9: 786.52, ICD10: R07.89 - related to brace. Hold on using it. Red flags for re-assessment reviewed with patient in detail. 5. Myalgia - ICD9: 729.1, ICD10: M79.10 - TSH BLD Yue Wahl MD RTO in six weeks. documented in this encounter [facility] 02-20-2023 Note HNO ID: [id number] Author: Yue Wahl MD Service: ? Author Type: Physician Type: Progress Notes Filed: 02/20/2023 1:14 PM Note Text: Patient presents with: Follow Up HPI: Patient presents today for office visit for ADHD follow up. ADD: Current Treatment: Adderall 5 mg prn Feels treatment is working well: Yes. Weight loss: No. Insomnia: No. GASTROENTEROLOGY complaints: No. Tremor: No. Mood disorder: No. Chest pain/Palpitations: No. Aware of risks associated with controlled substance use: Yes. Hx of misuse/abuse/diversion of meds: No. Oarrs done. Uses just prn. No sleep issues. MEDICATIONS: Current Outpatient Medications Medication Sig dextroamphetamine-amphetamine (ADDERALL) 5 mg tablet Take 1 tablet by mouth twice daily for 30 days. Do not start before September 03, 2021. dextroamphetamine-amphetamine (ADDERALL) 5 mg tablet Take 1 tablet by mouth twice daily for 30 days. dextroamphetamine-amphetamine (ADDERALL) 5 mg tablet Take 1 tablet by mouth twice daily for 30 days. No current facility-administered medications for this visit. ALLERGIES: ALLERGIES Allergen Reactions Hayfever [Homeopath* Vit E Lotion [Other] PAST MEDICAL HISTORY Diagnosis Date Abnormal glandular Papanicolaou smear of cervix 2002 Abn. Pap smear (cervix) Dysthymic disorder Depression (non-psychotic) Lump or mass in breast Mastitis Seasonal allergies PAST SURGICAL HISTORY Procedure Laterality Date BX BREAST PERC NEED W/GUID 04/24/12 U/S needle core outer mid right breast COLPOSCOPY CERVIX UPPER/ADJACENT VAGINA Colposcopy LAPS SURG CHOLECYSTECTOMY W/CHOLANGIOGRAPHY 10/29/12 PAST SURGICAL HISTORY OF WISDOM TEETH PAST SURGICAL HISTORY OF skin lesion leg-- avm FAMILY HISTORY Problem Relation Age of Onset Diabetes Father Hypertension Father Coronary Artery Disease Father Heart Father Colon Cancer Father age 70 Cancer Maternal Grandmother Breast Cancer Paternal Aunt AND paternal GM - both in their 40's other (Other) Paternal Aunt No hand mixer cancer Social History Tobacco Use Smoking status: Never Smokeless tobacco: Never Substance Use Topics Alcohol use: Yes Comment: very rarely Drug use: No Reviewed current medications, allergies, past medical history, surgical history, family history and social history today. REVIEW OF SYSTEMS All other reviewed and negative other than HPI. HEALTH MAINTENANCE: Reviewed health maintenance issues today and recommended the following in detail. HEPATITIS B(1 of 3 - 3-dose series) Never done COVID-19 VACCINE(1) Never done HIV SCREENING - was done. DTAP,TDAP,TD(3 - Td or Tdap) due on 12/22/2021 MAMMOGRAM due on 03/10/2022 PAP TESTING - sees [facility]. VITALS: BP 110/68 Pulse 95 Ht 157.5 cm (5' 2 ) Wt 61.2 kg (135 lb) LMP 02/14/2021 (Within Days) SpO2 98% BMI 24.69 kg/m? Last 4 Encounter Wt Readings: Date: Wt: 05/09/2022 57.6 kg (127 lb) 03/11/2021 59 kg (130 lb) 11/13/2019 59.9 kg (132 lb) 07/04/2019 58.5 kg (129 lb) PHYSICAL EXAMINATION: General appearance: Well appearing, alert, in no acute distress, well-hydrated, well nourished. Skin: Skin color, texture, turgor normal, no suspicious rashes or lesions Lungs: Lungs clear to auscultation. No wheezing, rhonchi, rales Heart: RRR without murmur, gallop, or rubs. No ectopy Abdomen: Normal abdominal exam, Abdomen soft, non-tender. Bowel sounds normal. No masses, organomegaly Extremities: No deformities, edema, skin discoloration, clubbing or cyanosis. Good capillary refill. ASSESSMENT/PLAN: 1. ADHD (attention deficit hyperactivity disorder), inattentive type - ICD9: 314.00, ICD10: F90.0 (primary diagnosis) - refilled one script since uses prn. - will do tox screen, however, may not have drug in her system. - TOX SCREEN ROUT UR - DEXTROAMPHETAMINE-AMPHETAMINE 5 MG TABLET 2. Encounter for screening mammogram for malignant neoplasm of breast - ICD9: V76.12, ICD10: Z12.31 - Follow up for annual exam in one year. - AMANDA SCREENING W IVAN Wahl MD Medical Decision Making: Problems: Low: Stable chronic illness Data: Unique test(s) ordered: 1 Risk: Moderate: Drug management Medical Decision Making Level: 3 - Low. [facility] 02-20-2023 History of Presen t illness Narrative Patient presents with: Follow Up HPI: Patient presents today for office visit for ADHD follow up. ADD: Current Treatment: Adderall 5 mg prn Feels treatment is working well: Yes. Weight loss: No. Insomnia: No. GASTROENTEROLOGY complaints: No. Tremor: No. Mood disorder: No. Chest pain/Palpitations: No. Aware of risks associated with controlled substance use: Yes. Hx of misuse/abuse/diversion of meds: No. Oarrs done. Uses just prn. No sleep issues. MEDICATIONS: Current Outpatient Medications Medication Sig dextroamphetamine-amphetamine (ADDERALL) 5 mg tablet Take 1 tablet by mouth twice daily for 30 days. Do not start before September 03, 2021. dextroamphetamine-amphetamine (ADDERALL) 5 mg tablet Take 1 tablet by mouth twice daily for 30 days. dextroamphetamine-amphetamine (ADDERALL) 5 mg tablet Take 1 tablet by mouth twice daily for 30 days. No current facility-administered medications for this visit. ALLERGIES: ALLERGIES Allergen Reactions Hayfever [Homeopath* Vit E Lotion [Other] PAST MEDICAL HISTORY Diagnosis Date Abnormal glandular Papanicolaou smear of cervix 2002 Abn. Pap smear (cervix) Dysthymic disorder Depression (non-psychotic) Lump or mass in breast Mastitis Seasonal allergies PAST SURGICAL HISTORY Procedure Laterality Date BX BREAST PERC NEED W/GUID 04/24/12 U/S needle core outer mid right breast COLPOSCOPY CERVIX UPPER/ADJACENT VAGINA Colposcopy LAPS SURG CHOLECYSTECTOMY W/CHOLANGIOGRAPHY 10/29/12 PAST SURGICAL HISTORY OF WISDOM TEETH PAST SURGICAL HISTORY OF skin lesion leg-- avm FAMILY HISTORY Problem Relation Age of Onset Diabetes Father Hypertension Father Coronary Artery Disease Father Heart Father Colon Cancer Father age 70 Cancer Maternal Grandmother Breast Cancer Paternal Aunt & paternal GM - both in their 40's other (Other) Paternal Aunt No hand mixer cancer Social History Tobacco Use Smoking status: Never Smokeless tobacco: Never Substance Use Topics Alcohol use: Yes Comment: very rarely Drug use: No Reviewed current medications, allergies, past medical history, surgical history, family history and social history today. REVIEW OF SYSTEMS All other reviewed and negative other than HPI. HEALTH MAINTENANCE: Reviewed health maintenance issues today and recommended the following in detail. HEPATITIS B(1 of 3 - 3-dose series) Never done COVID-19 VACCINE(1) Never done HIV SCREENING - was done. DTAP,TDAP,TD(3 - Td or Tdap) due on 12/22/2021 MAMMOGRAM due on 03/10/2022 PAP TESTING - sees [facility]. VITALS: BP 110/68 Pulse 95 Ht 157.5 cm (5' 2 ) Wt 61.2 kg (135 lb) LMP 02/14/2021 (Within Days) SpO2 98% BMI 24.69 kg/m Last 4 Encounter Wt Readings: Date: Wt: 05/09/2022 57.6 kg (127 lb) 03/11/2021 59 kg (130 lb) 11/13/2019 59.9 kg (132 lb) 07/04/2019 58.5 kg (129 lb) PHYSICAL EXAMINATION: General appearance: Well appearing, alert, in no acute distress, well-hydrated, well nourished. Skin: Skin color, texture, turgor normal, no suspicious rashes or lesions Lungs: Lungs clear to auscultation. No wheezing, rhonchi, rales Heart: RRR without murmur, gallop, or rubs. No ectopy Abdomen: Normal abdominal exam, Abdomen soft, non-tender. Bowel sounds normal. No masses, organomegaly Extremities: No deformities, edema, skin discoloration, clubbing or cyanosis. Good capillary refill. ASSESSMENT/PLAN: 1. ADHD (attention deficit hyperactivity disorder), inattentive type - ICD9: 314.00, ICD10: F90.0 (primary diagnosis) - refilled one script since uses prn. - will do tox screen, however, may not have drug in her system. - TOX SCREEN ROUT UR - DEXTROAMPHETAMINE-AMPHETAMINE 5 MG TABLET 2. Encounter for screening mammogram for malignant neoplasm of breast - ICD9: V76.12, ICD10: Z12.31 - Follow up for annual exam in one year. - AMANDA SCREENING W IVAN Yue Wahl MD Medical Decision Making: Problems: Low: Stable chronic illness Data: Unique test(s) ordered: 1 Risk: Moderate: Drug management Medical Decision Making Level: 3 - Low. documented in this encounter [facility] 11-14-2022 Miscellaneous Notes Mychart message sent Needs follow up visit Last Office Visit: 05/09/2022 Future Office Visit: None Requested Prescriptions Pending Prescriptions Disp Refills dextroamphetamine-amphetamine (ADDERALL) 5 mg tablet 60 tablet 0 Sig: Take 1 tablet by mouth twice daily for 30 days. Date of Last Labs: 08/07/2022 documented in this encounter [facility] 08-10-2022 Miscellaneous Notes Patient called back. She does need the medication because it was not sent this July, it was 2020. Opened in error, patient didn't realize already at pharmacy 08/04 documented in this encounter [facility] 08-10-2022 Miscellaneous Notes Patient has been identified by name and date of : Yes Requested Prescriptions Pending Prescriptions Disp Refills dextroamphetamine-amphetamine (ADDERALL) 5 mg tablet 60 tablet 0 Sig: Take 1 tablet by mouth twice daily for 30 days. RX INSTRUCTIONS: Please send today, someone told her sent but that was July 2021 not this year. This was last sent was 03/14/22. Patient aware RX will be sent to pharmacy. No need to notify patient. Maricruz Rich Pss documented in this encounter [facility] 03-14-2022 Miscellaneous Notes Patient scheduled med f/u 05/09. Needs seen Last seen 08/04/21 Scheduled 05/09/22 Patient has been identified by name and date of : Yes Last office visit in this department: 11/13/2019 RX INSTRUCTIONS: Patient aware RX will be sent to pharmacy. No need to notify patient. Patient phones requesting refills as follows: Pending Prescriptions Disp Refills DEXTROAMPHETAMINE-AMPHETAMINE 5 MG TABLET 60 tablet 0 Sig: Take 1 tablet by mouth twice daily for 30 days. JULIAN Class: C-II SALLY: No Please review and advise. Ines Guardado Pss documented in this encounter [facility] documented as of this encounter (statuses as of 03/14/2022) [facility] History of Past illness Narrative* Problem Noted Date Resolved Date Chronic cholecystitis 11/06/2012 08/26/2013 Routine general medical exam ination at a health care facility 12/07/2011 03/29/2012 Overview: 12/07/2011, from Dr. Waterman Routine gynecological examination 12/07/2011 03/29/2012 Overview: [facility] [place] Keloid 10/30/2009 08/26/2013 Hypotension, postural 10/30/2009 08/26/2013 Viral Warts, Unspecified 05/17/2009 013 Unspecified Pruritic Disorder 06/22/2008 Rash and Other Nonspecific Skin Eruption 008 08/26/2013 Mastitis 08/26/2013 documented as of this encounter (statuses as of 04/17/2022) [facility] History of Past illness Narrative* Problem Noted Date Resolved Date Chronic cholecystitis 11/06/2012 08/26/2013 Routine general medical exam ination at a health care facility 12/07/2011 03/29/2012 Overview: 12/07/2011, from Dr. Waterman Routine gynecological examination 12/07/2011 03/29/2012 Overview: [facility] [place] Keloid 10/30/2009 08/26/2013 Hypotension, postural 10/30/2009 08/26/2013 Viral Warts, Unspecified 05/17/2009 013 Unspecified Pruritic Disorder 06/22/2008 Rash and Other Nonspecific Skin Eruption 008 08/26/2013 Mastitis 08/26/2013 documented as of this encounter (statuses as of 08/10/2022) [facility] History of Past illness Narrative* Problem Noted Date Resolved Date Chronic cholecystitis 11/06/2012 08/26/2013 Routine general medical exam ination at a health care facility 12/07/2011 03/29/2012 Overview: 12/07/2011, from Dr. Waterman Routine gynecological examination 12/07/2011 03/29/2012 Overview: [facility] [place] Keloid 10/30/2009 08/26/2013 Hypotension, postural 10/30/2009 08/26/2013 Viral Warts, Unspecified 05/17/2009 013 Unspecified Pruritic Disorder 06/22/2008 Rash and Other Nonspecific Skin Eruption 008 08/26/2013 Mastitis 08/26/2013 documented as of this encounter (statuses as of 08/10/2022) [facility] History of Past illness Narrative* Problem Noted Date Resolved Date Chronic cholecystitis 11/06/2012 08/26/2013 Routine general medical exam ination at a health care facility 12/07/2011 03/29/2012 Overview: 12/07/2011, from Dr. Waterman Routine gynecological examination 12/07/2011 03/29/2012 Overview: [facility] [place] Keloid 10/30/2009 08/26/2013 Hypotension, postural 10/30/2009 08/26/2013 Viral Warts, Unspecified 05/17/2009 013 Unspecified Pruritic Disorder 06/22/2008 Rash and Other Nonspecific Skin Eruption 008 08/26/2013 Mastitis 08/26/2013 documented as of this encounter (statuses as of 11/19/2022) [facility] History of Past illness Narrative* Problem Noted Date Resolved Date Chronic cholecystitis 11/06/2012 08/26/2013 Routine general medical exam ination at a health care facility 12/07/2011 03/29/2012 Overview: 12/07/2011, from Dr. Waterman Routine gynecological examination 12/07/2011 03/29/2012 Overview: [facility] [place] Kel[place] 10/30/2009 08/26/2013 Hypotension, postural 10/30/2009 08/26/2013 Viral Warts, Unspecified 05/17/2009 013 Unspecified Pruritic Disorder 06/22/2008 Rash and Other Nonspecific Skin Eruption 008 08/26/2013 Mastitis 08/26/2013 documented as of this encounter (statuses as of 02/20/2023) [facility] History of Past illness Narrative* Problem Noted Date Diagnosed Date Resolved Date Chronic cholecystitis 11/06/20122012 Routine general medical exam ination at a health care facility 12/07/2011 03/29/2012 Overview: 12/07/2011, from Dr. Waterman Routine gynecological examination 12/07/2011 03/29/2012 Overview: [facility] [place] 10/30/2009 08/26/2013 Hypotension, postural 10/30/20092012 Viral Warts, Unspecified 05/17/200906/2013 Unspecified Pruritic Disorder 06/22/2008 08/26/2013 Rash and Other Nonspecific Skin Eruption 06/22/2008 08/26/2013 Mastitis 08/26/2013 documented as of this encounter (statuses as of 07/11/2023) [facility] History of Past illness Narrative* Problem Noted Date Diagnosed Date Resolved Date Chronic cholecystitis 11/06/20122012 Routine general medical exam ination at a health care facility 12/07/2011 03/29/2012 Overview: 12/07/2011, from Dr. Waterman Routine gynecological examination 12/07/2011 03/29/2012 Overview: [facility] [place]o 10/30/2009 08/26/2013 Hypotension, postural 10/30/20092012 Viral Warts, Unspecified 05/17/200906/2013 Unspecified Pruritic Disorder 06/22/2008 08/26/2013 Rash and Other Nonspecific Skin Eruption 06/22/2008 08/26/2013 Mastitis 08/26/2013 documented as of this encounter (statuses as of 08/07/2023) [facility] History of Past illness Narrative* Problem Noted Date Diagnosed Date Resolved Date Chronic cholecystitis 11/06/20122012 Routine general medical exam ination at a health care facility 12/07/2011 03/29/2012 Overview: 12/07/2011, from Dr. Waterman Routine gynecological examination 12/07/2011 03/29/2012 Overview: [facility] Josephine Cano 10/30/2009 08/26/2013 Hypotension, postural 10/30/20092012 Viral Warts, Unspecified 05/17/200906/2013 Unspecified Pruritic Disorder 06/22/2008 08/26/2013 Rash and Other Nonspecific Skin Eruption 06/22/2008 08/26/2013 Mastitis 08/26/2013 documented as of this encounter (statuses as of 08/07/2023) [facility] History of Past illness Narrative* Problem Noted Date Diagnosed Date Resolved Date Chronic cholecystitis 11/06/20122012 Routine general medical exam ination at a health care facility 12/07/2011 03/29/2012 Overview: 12/07/2011, from Dr. Waterman Routine gynecological examination 12/07/2011 03/29/2012 Overview: [facility] [place] Keloid 10/30/2009 08/26/2013 Hypotension, postural 10/30/20092012 Viral Warts, Unspecified 05/17/200906/2013 Unspecified Pruritic Disorder 06/22/2008 08/26/2013 Rash and Other Nonspecific Skin Eruption 06/22/2008 08/26/2013 Mastitis 08/26/2013 documented as of this encounter (statuses as of 08/09/2023) [facility] History of Past illness Narrative* Problem Noted Date Diagnosed Date Resolved Date Chronic cholecystitis 11/06/20122012 Routine general medical exam ination at a health care facility 12/07/2011 03/29/2012 Overview: 12/07/2011, from Dr. Waterman Routine gynecological examination 12/07/2011 03/29/2012 Overview: [facility] [place] Kel[place] 10/30/2009 08/26/2013 Hypotension, postural 10/30/20092012 Viral Warts, Unspecified 05/17/200906/2013 Unspecified Pruritic Disorder 06/22/2008 08/26/2013 Rash and Other Nonspecific Skin Eruption 06/22/2008 08/26/2013 Mastitis 08/26/2013 documented as of this encounter (statuses as of 08/09/2023) [facility] History of Past illness Narrative* Problem Noted Date Diagnosed Date Resolved Date Chronic cholecystitis 11/06/20122012 Routine general medical exam ination at a health care facility 12/07/2011 03/29/2012 Overview: 12/07/2011, from Dr. Waterman Routine gynecological examination 12/07/2011 03/29/2012 Overview: [facility] [place] Keloid 10/30/2009 08/26/2013 Hypotension, postural 10/30/20092012 Viral Warts, Unspecified 05/17/200906/2013 Unspecified Pruritic Disorder 06/22/2008 08/26/2013 Rash and Other Nonspecific Skin Eruption 06/22/2008 08/26/2013 Mastitis 08/26/2013 documented as of this encounter (statuses as of 08/10/2023) [address]19-2012 History of Past illness Narrative* Problem Noted Date Diagnosed Date Resolved Date Chronic cholecystitis 11/06/20122012 Routine general medical exam ination at a health care facility 12/07/2011 03/29/2012 Overview: 12/07/2011, from Dr. Waterman Routine gynecological examination 12/07/2011 03/29/2012 Overview: [facility] [place] Keloid 10/30/2009 08/26/2013 Hypotension, postural 10/30/20092012 Viral Warts, Unspecified 05/17/200906/2013 Unspecified Pruritic Disorder 06/22/2008 08/26/2013 Rash and Other Nonspecific Skin Eruption 06/22/2008 08/26/2013 Mastitis 08/26/2013 documented as of this encounter (statuses as of 08/10/2023) [facility] History of Past illness Narrative* Problem Noted Date Diagnosed Date Resolved Date Chronic cholecystitis 11/06/20122012 Routine general medical exam ination at a health care facility 12/07/2011 03/29/2012 Overview: 12/07/2011, from Dr. Waterman Routine gynecological examination 12/07/2011 03/29/2012 Overview: [facility] [place] Kel[place] 10/30/2009 08/26/2013 Hypotension, postural 10/30/20092012 Viral Warts, Unspecified 05/17/200906/2013 Unspecified Pruritic Disorder 06/22/2008 08/26/2013 Rash and Other Nonspecific Skin Eruption 06/22/2008 08/26/2013 Mastitis 08/26/2013 documented as of this encounter (statuses as of 08/14/2023) [facility] History of Past illness Narrative* Problem Noted Date Diagnosed Date Resolved Date Chronic cholecystitis 11/06/20122012 Routine general medical exam ination at a health care facility 12/07/2011 03/29/2012 Overview: 12/07/2011, from Dr. Waterman Routine gynecological examination 12/07/2011 03/29/2012 Overview: [facility] [place] Keloid 10/30/2009 08/26/2013 Hypotension, postural 10/30/20092012 Viral Warts, Unspecified 05/17/200906/2013 Unspecified Pruritic Disorder 06/22/2008 08/26/2013 Rash and Other Nonspecific Skin Eruption 06/22/2008 08/26/2013 Mastitis 08/26/2013 documented as of this encounter (statuses as of 08/30/2023) [facility] History of Past illness Narrative* Problem Noted Date Diagnosed Date Resolved Date Chronic cholecystitis 11/06/20122012 Routine general medical exam ination at a health care facility 12/07/2011 03/29/2012 Overview: 12/07/2011, from Dr. Waterman Routine gynecological examination 12/07/2011 03/29/2012 Overview: [facility] [place] Keloid 10/30/2009 08/26/2013 Hypotension, postural 10/30/20092012 Viral Warts, Unspecified 05/17/200906/2013 Unspecified Pruritic Disorder 06/22/2008 08/26/2013 Rash and Other Nonspecific Skin Eruption 06/22/2008 08/26/2013 Mastitis 08/26/2013 documented as of this encounter (statuses as of 08/30/2023) [facility] History of Past illness Narrative* Problem Noted Date Diagnosed Date Resolved Date Chronic cholecystitis 11/06/20122012 Routine general medical exam ination at a health care facility 12/07/2011 03/29/2012 Overview: 12/07/2011, from Dr. Waterman Routine gynecological examination 12/07/2011 03/29/2012 Overview: [facility] Josephine Keloid 10/30/2009 08/26/2013 Hypotension, postural 10/30/20092012 Viral Warts, Unspecified 05/17/200906/2013 Unspecified Pruritic Disorder 06/22/2008 08/26/2013 Rash and Other Nonspecific Skin Eruption 06/22/2008 08/26/2013 Mastitis 08/26/2013 documented as of this encounter (statuses as of 09/04/2023) [facility]12[facility]2012 History of Past illness Narrative* Problem Noted Date Diagnosed Date Resolved Date Chronic cholecystitis 11/06/20122012 Routine general medical exam ination at a health care facility 12/07/2011 03/29/2012 Overview: 12/07/2011, from Dr. Waterman Routine gynecological examination 12/07/2011 03/29/2012 Overview: [facility], [facility] Josephine Keloid 10/30/2009 08/26/2013 Hypotension, postural 10/30/20092012 Viral Warts, Unspecified 05/17/200906/2013 Unspecified Pruritic Disorder 06/22/2008 08/26/2013 Rash and Other Nonspecific Skin Eruption 06/22/2008 08/26/2013 Mastitis 08/26/2013 documented as of this encounter (statuses as of 09/10/2023) [facility]12[facility]2012 History of Past illness Narrative* Problem Noted Date Diagnosed Date Resolved Date Chronic cholecystitis 11/06/20122012 Routine general medical exam ination at a health care facility 12/07/2011 03/29/2012 Overview: 12/07/2011, from Dr. Waterman Routine gynecological examination 12/07/2011 03/29/2012 Overview: [facility], [facility] Josephine Keloid 10/30/2009 08/26/2013 Hypotension, postural 10/30/20092012 Viral Warts, Unspecified 05/17/200906/2013 Unspecified Pruritic Disorder 06/22/2008 08/26/2013 Rash and Other Nonspecific Skin Eruption 06/22/2008 08/26/2013 Mastitis 08/26/2013 documented as of this encounter (statuses as of 10/03/2023) [facility]2012 History of Past illness Narrative* Problem Noted Date Diagnosed Date Resolved Date Chronic cholecystitis 11/06/20122012 Routine general medical exam ination at a health care facility 12/07/2011 03/29/2012 Overview: 12/07/2011, from Dr. Waterman Routine gynecological examination 12/07/2011 03/29/2012 Overview: [facility], [facility] Josephine Keloid 10/30/2009 08/26/2013 Hypotension, postural 10/30/20092012 Viral Warts, Unspecified 05/17/200906/2013 Unspecified Pruritic Disorder 06/22/2008 08/26/2013 Rash and Other Nonspecific Skin Eruption 06/22/2008 08/26/2013 Mastitis 08/26/2013 documented as of this encounter (statuses as of 10/04/2023) [facility] History of Past illness Narrative* Problem Noted Date Diagnosed Date Resolved Date Chronic cholecystitis 11/06/20122012 Routine general medical exam ination at a health care facility 12/07/2011 03/29/2012 Overview: 12/07/2011, from Dr. Waterman Routine gynecological examination 12/07/2011 03/29/2012 Overview: [facility], [facility] [place] Keloid 10/30/2009 08/26/2013 Hypotension, postural 10/30/20092012 Viral Warts, Unspecified 05/17/200906/2013 Unspecified Pruritic Disorder 06/22/2008 08/26/2013 Rash and Other Nonspecific Skin Eruption 06/22/2008 08/26/2013 Mastitis 08/26/2013 documented as of this encounter (statuses as of 10/05/2023) [facility] History of Past illness Narrative* Problem Noted Date Diagnosed Date Resolved Date Chronic cholecystitis 11/06/20122012 Routine general medical exam ination at a health care facility 12/07/2011 03/29/2012 Overview: 12/07/2011, from Dr. Waterman Routine gynecological examination 12/07/2011 03/29/2012 Overview: [facility], [facility] [place] Keloid 10/30/2009 08/26/2013 Hypotension, postural 10/30/20092012 Viral Warts, Unspecified 05/17/200906/2013 Unspecified Pruritic Disorder 06/22/2008 08/26/2013 Rash and Other Nonspecific Skin Eruption 06/22/2008 08/26/2013 Mastitis 08/26/2013 documented as of this encounter (statuses as of 10/15/2023) [facility] History of Past illness Narrative* Problem Noted Date Diagnosed Date Resolved Date Chronic cholecystitis 11/06/20122012 Routine general medical exam ination at a health care facility 12/07/2011 03/29/2012 Overview: 12/07/2011, from Dr. Waterman Routine gynecological examination 12/07/2011 03/29/2012 Overview: [facility], [facility] [place] Keloid 10/30/2009 08/26/2013 Hypotension, postural 10/30/20092012 Viral Warts, Unspecified 05/17/200906/2013 Unspecified Pruritic Disorder 06/22/2008 08/26/2013 Rash and Other Nonspecific Skin Eruption 06/22/2008 08/26/2013 Mastitis 08/26/2013 documented as of this encounter (statuses as of 10/18/2023) [facility] History of Past illness Narrative* Problem Noted Date Diagnosed Date Resolved Date Chronic cholecystitis 11/06/20122012 Routine general medical exam ination at a health care facility 12/07/2011 03/29/2012 Overview: 12/07/2011, from Dr. 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 [facility] Encounter for screening [facility]ogram for breast cancer [facility] Diagnosis ADHD (attention deficit hyperactivity disorder), 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 [facility] Diagnosis ADHD (attention deficit hyperactivity disorder), 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 [facility] Diagnosis ADHD (attention deficit hyperactivity disorder), inattentive type- Primary Attention deficit disorder without mention of hyperactivity Encounter for screening mammogram for malignant neoplasm of breast Other screening mammogram [facility] Diagnosis Headache, unspecified headache type- Primary Blurred vision Other specified visual disturbances Neck pain Cervicalgia Chest wall pain Painful respiration Myalgia Mylagia and myositis, unspecified [facility] Diagnosis Brain mass- Primary Unspecified condition of brain Blurred vision Other specified visual disturbances Headache, unspecified headache type [facility] Diagnosis Brain mass Unspecified condition of brain Blurred vision Other specified visual disturbances Headache, unspecified headache type documented in this encounter [facility] note* Diagnosis Thunderclap headache- Primary Headache documented in this encounter [facility] note* Diagnosis Abnormal mammogram- Primary Abnormal mammogram, unspecified documented in this encounter [facility] note* Diagnosis Encounter for gynecological examination with abnormal finding- Primary Routine gynecological examination Screening for cervical cancer Screening for malignant neoplasm of the cervix Encounter for screening for human papillomavirus (HPV) Special screening examination for human papillomavirus (HPV) Encounter for screening mammogram for breast cancer Uterovaginal prolapse, incomplete Voiding dysfunction Unspecified disorder of urethra and urinary tract Pelvic pressure syndrome Pelvic congestion syndrome Menorrhagia with regular cycle Excessive or frequent menstruation documented in this encounter [facility] note* Diagnosis Menorrhagia with regular cycle- Primary Excessive or frequent menstruation Cystocele with second degree uterine prolapse documented in this encounter [facility] note* Diagnosis Pelvic pressure syndrome Pelvic congestion syndrome Menorrhagia with regular cycle Excessive or frequent menstruation documented in this encounter [facility] note* Diagnosis Thunderclap headache Headache documented in this encounter [facility] for referral (narrative)* Diagnostic Procedure Only (Routine) - Authorized Specialty Diagnoses / Procedures Referred By Ana gu Referred To Contact [facility] Diagnoses Encounter for screening mammogram for breast cancer Procedures AMANDA SCREENING SCREENING MAMMOGRAPHY BI 2-VIEW BREAST INC Yue Ellis MD [address] [place] [address] [facility] [address] [place] [id number] Referral ID Status Reason Start Date Expiration Date Visits Requested Visits Authorized [id number] Authorized Auto-Generat ed Referral 04/12/2022 05/12/2023 1 1 [facility] for referral (narrative)* Diagnostic Procedure Only (Routine) - Pending Review Specialty Diagnoses / Procedures Referred By Ana gu Referred To Contact [facility] Diagnoses Encounter for screening mammogram for malignant neoplasm of breast Procedures AMANDA SCREENING W IVAN SCREENING DIGITAL BREAST TOMOSYNTHESIS BI SCREENING MAMMOGRAPHY BI 2-VIEW BREAST INC CAD Yue Wahl MD [address] [place] [address] [facility] [address] [place] [address] Referral ID Status Reason Start Date Expiration Date Visits Requested Visits Authorized [id number] Pending Review Auto-Generat ed Referral 02/20/2023 03/21/2024 1 1 [facility] for referral (narrative)* Diagnostic Procedure Only (Routine) - Pending Review Specialty Diagnoses / Procedures Referred By Ana t Referred To Contact [facility] Diagnoses Abnormal mammogram Procedures US BREAST LTD LEFT US BREAST UNI REAL TIME WITH IMAGE LIMITED Yue Wahl MD [address] [place] [address] [facility] [address] [place] [address] Referral ID Status Reason Start Date Expiration Date Visits Requested Visits Authorized [id number] Pending Review Auto-Generat ed Referral 3 10/03/2024 1 1 * Diagnostic Procedure Only (Routine) - Pending Review Specialty Diagnoses / Procedures Referred By Ana gu Referred To Contact [facility] Diagnoses Abnormal mammogram Procedures US BREAST LTD RIGHT US BREAST UNI REAL TIME WITH IMAGE LIMITED Yue Wahl MD [address] [place] [address] [facility] [address] [place] [address] Referral ID Status Reason Start Date Expiration Date Visits Requested Visits Authorized [id number] Pending Review Auto-Generat ed Referral 3 10/03/2024 1 1 * Diagnostic Procedure Only (Routine) - Pending Review Specialty Diagnoses / Procedures Referred By Ana gu Referred To Contact [facility] Diagnoses Abnormal mammogram Procedures AMANDA DIAGNOSTIC BILATERAL DIAGNOSTIC MAMMOGRAPHY COMPUTER[place] [address] [place] [address] [facility] [address] [place] [address] Referral ID Status Reason Start Date Expiration Date Visits Requested Visits Authorized [id number] Pending Review Auto-Generat ed Referral 10/03/2024 1 1 [facility] Diagnostic Procedure Only (Routine) - Closed Specialty Diagnoses / Procedures Referred By Contac t Referred To Contact [facility] Diagnoses Pelvic pressure syndrome Menorrhagia with regular cycle Procedures US FEMALE PELVIS TRANSVAG US TRANSVAGINAL Ines Wylie MD [address] [place] [address] [place] [address] Referral ID Status Reason Start Date Expiration Date V isits Requested Visits Authorized [id number] Closed Auto-Generate d Referral 09/10/2023 10/09/2024 1 1 [facility] Reason for Referral Specialty Diagnoses / Procedures Referred By Contac t Referred To Contact [facility] IMAGING Diagnoses Blurred vision Headache, unspecified headache type Procedures MRI BRAIN WO IVCON MRI BRAIN BRAIN STEM W/O CONTRAST MATERIAL Yue Wahl MD [facility] [place] [address] [place] [address] Referral ID Status Reason Start Date Expiration Date Visits Requested Visits Authorized [id number] Pending Review Auto-Generat ed Referral 07/11/2023 08/09/2024 1 1 Specialty Diagnoses / Procedures Referred By Contac t Referred To Contact XR IMAGING Diagnoses Neck pain Procedures XR CERV OTHER 4V AP/LAT/OBL RADEX SPINE CERVICAL 4 OR 5 VIEWS Yue Wahl MD [address] [place] [address] [place] [address] Referral ID Status Reason Start Date Expiration Date V isits Requested Visits Authorized [id number] Closed Auto-Generate d Referral 07/11/2023 08/09/2024 1 1 Specialty Diagnoses / Procedures Referred By Contac t Referred To Contact [facility] Diagnoses Brain mass Blurred vision Headache, unspecified headache type Procedures MRI BRAIN WO/W IVCON MRI BRAIN BRAIN STEM W/O W/CONTRAST MATERIAL Yue Wahl MD [address] [place] [address] Mr Imaging [id number] Referral ID Status Reason Start Date Expiration Date Visits Requested Visits Authorized [id number] Authorized Auto-Generat ed Referral Patient Cleared - Admin/Chairm an/Director advise to proceed or did not respond 08/06/2023 10/04/2023 1 1 Referral ID Status Reason Start Date Expiration Date V isits Requested Visits Authorized [id number] Closed Auto-Generat ed Referral Patient Cleared - Admin/Chairm an/Director advise to proceed or did not respond 08/06/2023 10/04/2023 1 1 Specialty Diagnoses / Procedures Referred By Contac t Referred To Contact CT IMAGING Diagnoses Thunderclap headache Procedures CTA NECK W IVCON CT ANGIOGRAPHY NECK W/CONTRAST/NONCONTRAST Alaina Anguiano MD, PhD [id number] [id number] Referral ID Status Reason Start Date Expiration Date Visits Requested Visits Authorized [id number] Pending Review Auto-Generat ed Referral 3 09/28/2024 1 1 Specialty Diagnoses / Procedures Referred By Contac t Referred To Contact CT IMAGING Diagnoses Thunderclap headache Procedures CTA HEAD W IVCON CT ANGIOGRAPHY HEAD W/CONTRAST/NONCONTRAST Alaina Anguiano MD, PhD [id number] [id number] Referral ID Status Reason Start Date Expiration Date Visits Requested Visits Authorized [id number] Pending Review Auto-Generat ed Referral 3 09/28/2024 1 1 Specialty Diagnoses / Procedures Referred By Contac t Referred To Contact Diagnoses Uterovaginal prolapse, incomplete Voiding dysfunction Pelvic pressure syndrome Procedures CONSULT TO URO GYNECOLOGY OFFICE/OUTPATIENT [facility] 60-74 MINUTES Ines Wylie MD [address] [place] [address] Referral ID Status Reason Start Date Expiration Date Visits Requested Visits Authorized [id number] Authorized PCP Requested Referral Auto-Generate d Referral 3 12/09/2023 1 1 Specialty Diagnoses / Procedures Referred By Contac t Referred To Contact [facility] Diagnoses Pelvic pressure syndrome Menorrhagia with regular cycle Procedures US FEMALE PELVIS TRANSVAG US TRANSVAGINAL Ines Wylie MD [address] [place] [address] [place] [address] Referral ID Status Reason Start Date Expiration Date Visits Requested Visits Authorized [id number] Authorized Auto-Generat ed Referral 3 10/09/2024 1 1 Specialty Diagnoses / Procedures Referred By Contac t Referred To Contact [facility] Diagnoses Menorrhagia with regular cycle Procedures ENDOMETRIAL BIOPSY ENDOMETRIAL BX W/WO ENDOCERVIX BX W/O DILAT SPX Ines Wylie MD [address] [place] [address] [facility] [address] [place] [address] Referral ID Status Reason Start Date Expiration Date Visits Requested Visits Authorized [id number] Pending Review Auto-Generat ed Referral 3 09/09/2024 1 1 Specialty Diagnoses / Procedures Referred By Contac t Referred To Contact Diagnoses Menorrhagia with regular cycle Cystocele with second degree uterine prolapse Procedures CONSULT TO URO GYNECOLOGY OFFICE/OUTPATIENT [facility] 60-74 MINUTES Ines Wylie MD [address] [place] [address] Referral ID Status Reason Start Date Expiration Date Visits Requested Visits Authorized [id number] Authorized PCP Requested Referral Auto-Generate d Referral 3 01/01/2024 1 1 Referral ID Status Reason Start Date Expiration Date V isits Requested Visits Authorized [id number] Closed Auto-Generate d Referral 08/24/2023 10/22/2023 1 1 Referral ID Status Reason Start Date Expiration Date V isits Requested Visits Authorized [id number] Closed Auto-Generat ed Referral Patient Cleared - Admin/Chairm an/Director advise to proceed or did not respond 10/02/2023 11/30/2023 1 1 Summary Purpose Family History No Family History Records FoundNo Family History Records FoundNo Family History Records Found Advance Directives No Advanced Directives Records FoundNo Advanced Directives Records FoundNo Advanced Directives Records Found Additional Source Comments Source Comments (unrecognize d section and content) In the event this informatio n is protected by the Federal Confidentiality of Alcohol and Drug Abuse Patient Records regulations: The Federal rules restrict any use of the information to criminally investigate or prosecute any alcohol or drug abuse patient.[facility] the event this information is protected by the Federal Confidentiality of Alcohol and Drug Abuse Patient Records regulations: The Federal rules restrict any use of the information to criminally investigate or prosecute any alcohol or drug abuse patient.[facility] the event this information is protected by the Federal Confidentiality of Alcohol and Drug Abuse Patient Records regulations: The Federal rules restrict any use of the information to criminally investigate or prosecute any alcohol or drug abuse patient.[facility] the event this information is protected by the Federal Confidentiality of Alcohol and Drug Abuse Patient Records regulations: The Federal rules restrict any use of the information to criminally investigate or prosecute any alcohol or drug abuse patient.[facility] the event this information is protected by the Federal Confidentiality of Alcohol and Drug Abuse Patient Records regulations: The Federal rules restrict any use of the information to criminally investigate or prosecute any alcohol or drug abuse patient.[facility] the event this information is protected by the Federal Confidentiality of Alcohol and Drug Abuse Patient Records regulations: The Federal rules restrict any use of the information to criminally investigate or prosecute any alcohol or drug abuse patient.[facility] the event this information is protected by the Federal Confidentiality of Alcohol and Drug Abuse Patient Records regulations: The Federal rules restrict any use of the information to criminally investigate or prosecute any alcohol or drug abuse patient.[facility] the event this information is protected by the Federal Confidentiality of Alcohol and Drug Abuse Patient Records regulations: The Federal rules restrict any use of the information to criminally investigate or prosecute any alcohol or drug abuse patient.[facility] the event this information is protected by the Federal Confidentiality of Alcohol and Drug Abuse Patient Records regulations: The Federal rules restrict any use of the information to criminally investigate or prosecute any alcohol or drug abuse patient.[facility] the event this information is protected by the Federal Confidentiality of Alcohol and Drug Abuse Patient Records regulations: The Federal rules restrict any use of the information to criminally investigate or prosecute any alcohol or drug abuse patient.[facility] the event this information is protected by the Federal Confidentiality of Alcohol and Drug Abuse Patient Records regulations: The Federal rules restrict any use of the information to criminally investigate or prosecute any alcohol or drug abuse patient.[facility] the event this information is protected by the Federal Confidentiality of Alcohol and Drug Abuse Patient Records regulations: The Federal rules restrict any use of the information to criminally investigate or prosecute any alcohol or drug abuse patient.[facility] the event this information is protected by the Federal Confidentiality of Alcohol and Drug Abuse Patient Records regulations: The Federal rules restrict any use of the information to criminally investigate or prosecute any alcohol or drug abuse patient.[facility] the event this information is protected by the Federal Confidentiality of Alcohol and Drug Abuse Patient Records regulations: The Federal rules restrict any use of the information to criminally investigate or prosecute any alcohol or drug abuse patient.[facility] the event this information is protected by the Federal Confidentiality of Alcohol and Drug Abuse Patient Records regulations: The Federal rules restrict any use of the information to criminally investigate or prosecute any alcohol or drug abuse patient.[facility] the event this information is protected by the Federal Confidentiality of Alcohol and Drug Abuse Patient Records regulations: The Federal rules restrict any use of the information to criminally investigate or prosecute any alcohol or drug abuse patient.[facility] the event this information is protected by the Federal Confidentiality of Alcohol and Drug Abuse Patient Records regulations: The Federal rules restrict any use of the information to criminally investigate or prosecute any alcohol or drug abuse patient.[facility] the event this information is protected by the Federal Confidentiality of Alcohol and Drug Abuse Patient Records regulations: The Federal rules restrict any use of the information to criminally investigate or prosecute any alcohol or drug abuse patient.[facility] the event this information is protected by the Federal Confidentiality of Alcohol and Drug Abuse Patient Records regulations: The Federal rules restrict any use of the information to criminally investigate or prosecute any alcohol or drug abuse patient.[facility] the event this information is protected by the Federal Confidentiality of Alcohol and Drug Abuse Patient Records regulations: The Federal rules restrict any use of the information to criminally investigate or prosecute any alcohol or drug abuse patient.[facility] the event this information is protected by the Federal Confidentiality of Alcohol and Drug Abuse Patient Records regulations: The Federal rules restrict any use of the information to criminally investigate or prosecute any alcohol or drug abuse patient.[facility] the event this information is protected by the Federal Confidentiality of Alcohol and Drug Abuse Patient Records regulations: The Federal rules restrict any use of the information to criminally investigate or prosecute any alcohol or drug abuse patient.[facility] the event this information is protected by the Federal Confidentiality of Alcohol and Drug Abuse Patient Records regulations: The Federal rules restrict any use of the information to criminally investigate or prosecute any alcohol or drug abuse patient.[facility] the event this information is protected by the Federal Confidentiality of Alcohol and Drug Abuse Patient Records regulations: The Federal rules restrict any use of the information to criminally investigate or prosecute any alcohol or drug abuse patient.[facility] Reason for Visit (unrecogniz ed section and content) Reason Onset Date Comments Refill Request 08/10/2022 Reason Onset Date Comments Refill Request 08/10/2022 SEE RX NOTES Reason Onset Date Comments Refill Request 11/13/2022 Reason Comments Follow Up Reason Comments Neck Pain Necj pain and pressu re in her head Reason Comments Orders Reason Comments pt question on apt for today mammogram Reason Comments Mammogram Result Call Back Specialty Diagnoses / Procedures Referred By Ana gu Referred To Contact MR IMAGING Diagnoses Brain mass Blurred vision Headache, unspecified headache type Procedures MRI BRAIN WO/W IVCON MRI BRAIN BRAIN STEM W/O W/CONTRAST MATERIAL Yue Wahl MD [address] [place] [address] [place] [address] Referral ID Status Reason Start Date Expiration Date V isits Requested Visits Authorized [id number] Closed Auto-Generat ed Referral Patient Cleared - Admin/Chairm an/Director advise to proceed or did not respond 08/06/2023 10/04/2023 1 1 Reason Comments triage internal Reason Comments Triage Internal referral Reason Comments Results Reason Comments Yearly Exam Reason Comments Endometrial Biopsy Specialty Diagnoses / Procedures Referred By Ana gu Referred To Contact [facility] Diagnoses Menorrhagia with regular cycle Procedures ENDOMETRIAL BIOPSY ENDOMETRIAL BX W/WO ENDOCERVIX BX W/O DILAT SPX Ines Wylie MD [address] [place] [address] [facility] [address] [place] [id number] Referral ID Status Reason Start Date Expiration Date V isits Requested Visits Authorized [id number] Closed Auto-Generate d Referral 09/18/2023 11/18/2023 1 1 Reason Comments Radiology US Specialty Diagnoses / Procedures Referred By Contac t Referred To Contact US IMAGING Diagnoses Pelvic pressure syndrome Menorrhagia with regular cycle Procedures US FEMALE PELVIS TRANSVAG US TRANSVAGINAL Ines Wylie MD [address] [place] [address] Us Imaging [id number] Referral ID Status Reason Start Date Expiration Date V isits Requested Visits Authorized [id number] Closed Auto-Generate d Referral 09/10/2023 10/09/2024 [address] Specialty Diagnoses / Procedures Referred By Contac t Referred To Contact CT IMAGING Diagnoses Thunderclap headache Procedures CTA HEAD W IVCON CT ANGIOGRAPHY HEAD W/CONTRAST/NONCONTRAST Alaina Anguiano MD, PhD [facility] [place] [address] [place] [address] Referral ID Status Reason Start Date Expiration Date V isits Requested Visits Authorized [id number] Closed Auto-Generat ed Referral Patient Cleared - Admin/Chairm an/Director advise to proceed or did not respond 10/02/2023 11/30/2023 1 1 Reason Comments LAURA 1-2 weeks Reason Comments Consult Dr[address] Brody Care Teams (unrecognized sec tion and content) Arch Pad Cementer Relationship Specialty Start Date End Date Yue Wahl MD [address], [place] [id number] PCP - General Family Practice 09/17/13 Arch Pad Cementer Relationship Specialty Start Date End Date Yue Wahl MD [address], [place] [id number] PCP - General Family Medicine 09/17/13 Arch Pad Cementer Relationship Specialty Start Date End Date Yue Wahl MD [address], [place] [id number] PCP - General Family Medicine 09/17/13 Arch Pad Cementer Relationship Specialty Start Date End Date Yue Wahl MD [address] [place] [address] PCP - General Family Medicine 09/17/13 Arch Pad Cementer Relationship Specialty Start Date End Date Yue Wahl MD [address] [place] [address] PCP - General Family Medicine 09/17/13 Arch Pad Cementer Relationship Specialty Start Date End Date Yue Wahl MD [address] [place] [address] PCP - General Family Medicine 09/17/13 Arch Pad Cementer Relationship Specialty Start Date End Date Yue Wahl MD [address], [place] [address] PCP - General Family Medicine 09/17/13 Arch Pad Cementer Relationship Specialty Start Date End Date Yue Wahl MD [address] [place] [address] PCP - General Family Medicine 09/17/13 Arch Pad Cementer Relationship Specialty Start Date End Date Yue Wahl MD [address], [place] [address] PCP - General Family Medicine 09/17/13 Arch Pad Cementer Relationship Specialty Start Date End Date Yue Wahl MD [address] [place] [address] PCP - General Family Medicine 09/17/13 Arch Pad Cementer Relationship Specialty Start Date End Date Yue Wahl MD [address] [place] [address] PCP - General Family Medicine 09/17/13 Arch Pad Cementer Relationship Specialty Start Date End Date Yue Wahl MD [address] [place] [address] PCP - General Family Medicine 09/17/13 Arch Pad Cementer Relationship Specialty Start Date End Date Yue Wahl MD [address] [place] [address] PCP - General Family Medicine 09/17/13 Arch Pad Cementer Relationship Specialty Start Date End Date Yue Wahl MD [address] [place] [address] PCP - General Family Medicine 09/17/13 Arch Pad Cementer Relationship Specialty Start Date End Date Yue Wahl MD [address] [place] [address] PCP - General Family Medicine 09/17/13 Arch Pad Cementer Relationship Specialty Start Date End Date Yue Wahl MD [address] [place] [address] PCP - General Family Medicine 09/17/13 Arch Pad Cementer Relationship Specialty Start Date End Date Yue Wahl MD [address], [place] [id number] PCP - General Family Medicine 09/17/13 Arch Pad Cementer Relationship Specialty Start Date End Date Yue Wahl MD [address] [place] [address] PCP - General Family Medicine 09/17/13 Arch Pad Cementer Relationship Specialty Start Date End Date Yue Wahl MD [address] [facility] [place] [address] PCP - General Family Medicine 09/17/13 Arch Pad Cementer Relationship Specialty Start Date End Date Yue Wahl MD [address] [facility] [place] [address] PCP - General Family Medicine 09/17/13 INFORMATION SOURCE (unrecogn ized section and content) DATE CREATED AUTHOR AUTHOR'S ORGANIZ ATION 08/10/2023 [facility] DATE CREATED AUTHOR AUTHOR'S ORGANIZ ATION 11/21/2023 [facility] FOR RECORDS PERTAINING TO PATIENTS WHO ARE OR HAVE BEEN ENROLLED IN A CHEMICAL DEPENDENCY/SUBSTANCEABUSE PROGRAM, SOME INFORMATION MAY BE OMITTED. This clinical summary was aggregated from multiple sources. Caution should be exercised in using it in the provision of clinical care. This summary normalizes information from multiple sources, and as a consequence, information in this document may materially change the coding, format and clinical context of patient data. In addition, data may be omitted in some cases. CLINICAL DECISIONS SHOULD BE BASED ON THE PRIMARY CLINICAL RECORDS. [employer] [facility]. provides no warranty or guarantee of the accuracy or completeness of information in this document.
[2023-11-22 08:32] LABS: Internal QC Validated? YES +Cl - CLEAR BKGD; Pregnancy, Urine Negative Negative
[2023-11-22] MEDS: dexAMETHasone 4 MG/ML Vial 8 MG IV (08:34)
[2023-11-22] MEDS: Magnesium 1 GM over 15 mins IV (08:37)
[2023-11-22] MEDS: Acetaminophen 500 MG Tablet 1000 MG PO ×2 (08:41→14:59)
[2023-11-22] MEDS: Gabapentin 600 MG Tablet PO (08:41)
[2023-11-22] MEDS: Phenazopyridine 95 MG Tablet 190 MG PO (08:42)
[2023-11-22] MEDS: Celecoxib 200 MG Capsule 400 MG PO (08:42)
[2023-11-22] MEDS: Lactated Ringers 1,000 ML 40 ML IV (08:44)
[2023-11-22] MEDS: Enoxaparin 40 MG/0.4 ML Syringe SC (08:44)
[2023-11-22] MEDS: Scopolamine 1mg/72hr Patch 1 PATCH TD (08:45)
[2023-11-22 09:07] LABS: Bedside Glucose 98 mg/dL (74-106)
--- NOTE | 2023-11-22 09:50 | HYST_PTH ---
PATHOLOGY RESULTS PATIENT: MERLENE MOTTA LOC: [facility] U#:[id number] AGE/SX: 43/F ROOM: RE11/22/[address]: Dr. Sumi Crews MD : [id number] BED: DIS: 11/22/2023 SPEC #: [id number] RECD: 11/23/23 07:37 STATUS: REMI HOROWITZ #: [id number] LAW: 11/22/23 09:[address]: Sumi Crews DEPT: SURGICAL PATHOLOGY RECD BY: Argenis Rao ENTERED: 11/23/23 07:37 SP TYPE: HYSTERECT OTHR DR: Dr. Laron Wahl MD Tissues: Uterus, NOS Procedures: Surgery Specimen Level V HEADER OPERATION: Total vaginal hysterectomy, bilateral salpingectomy PRE-OP DIAGNOSIS: Menorrhagia, dysmenorrhea, first-degree uterine prolapse TISSUE SUBMITTED: Uterus, bilateral fallopian tubes MICROSCOPIC DIAGNOSIS Uterus and bilateral fallopian tubes, vaginal hysterectomy and bilateral salpingectomy: Cervix - chronic cystic cervicitis. Endometrium - secretory endometrium. Myometrium - a minute intramural leiomyoma (0.3 cm in greatest dimension). Bilateral fallopian tubes - no pathologic diagnosis. SJ:xiomara 11/26/2023 MICROSCOPIC DESCRIPTION Slides are reviewed. GROSS DESCRIPTION Received in fixative is one container labeled with the patient's name and designated uterus, cervix, bilateral fallopian tubes. The specimen consists of a hysterectomy specimen consisting of uterus with cervix and detached bilateral fallopian tubes. The uterus with cervix weighs 140 gm and measures 10.0 x 7.0 x 5.5 cm. The serosal surface is smooth. The ectocervical mucosa is unremarkable. The external os is oval and patulous in contour. The endocervical canal measures 3.5 cm in length and the endocervical mucosa is unremarkable. The triangular endometrial cavity measures 4.5 cm in length and 3.0 cm in width. The endometrium is rhodes, glistening and measures 0.5 cm in thickness. Sections of the uterine wall reveal a possible small nodular mass measuring 0.5 cm in greatest dimension. The uterine wall measures up to 3.0 cm in thickness. The detached fallopian tubes are not identified as right or left and measures 4.0 cm in length and 0.7 cm in diameter and 3.5 cm in length and 0.5 cm in diameter. The fimbrial end is identified. Sections reveal unremarkable cut surfaces. Stained Glass Glazier Helper sections are submitted in nine cassettes as follows: 1 - anterior cervix, 2 - posterior cervix, 3 & 4 - anterior uterine wall, 5 & 6 - posterior uterine wall, 7 - posterior uterine wall with possible nodular mass, 8 - one fallopian tube, 9 - second fallopian tube. / ELADIO:xiomara 11/23/2023 TC:3 CPT: 88590
--- NOTE | 2023-11-22 11:02 | PCM.HP.BLA ---
History and Physical Date of Admission: 11/22/23 HPI: The patient is a 43 year old female presenting for pre-operative visit. She is scheduled for TVH with bilateral salpingectomy, for menorrhagia, dysmenorrhea, uterine prolapse on 11/22/23. Procedure discussed along with risks, benefits and complications. Other alternatives discussed for management. Consent form signed? Yes. ? ? PAST MEDICAL HISTORY PAST MEDICAL HISTORY Diagnosis Date ? Abnormal glandular Papanicolaou smear of cervix 2002 ? Abn. Pap smear (cervix) ? 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 CSF leak ? ? after epidural, required blood patch x 2 ? Dysthymic disorder ? ? Depression (non-psychotic) ? Endometriosis ? ? history of ruptured lesion on ovary many years ago ? Lump or mass in breast ? ? Mastitis ? ? Seasonal allergies ? ? ? PAST SURGICAL HISTORY PAST SURGICAL HISTORY Procedure Laterality Date ? BX BREAST PERC NEED W/GUID ? 04/24/2012 ? U/S needle core outer mid right breast ? COLPOSCOPY CERVIX UPPER/ADJACENT VAGINA ? ? ? Colposcopy ? LAPS SURG CHOLECYSTECTOMY W/CHOLANGIOGRAPHY ? 10/29/2012 ? PAST SURGICAL HISTORY OF ? ? ? WISDOM TEETH ? PAST SURGICAL HISTORY OF Bilateral ? ? skin lesion leg, pea-sized lesion ? SKIN SURGERY HX Right ? ? distal anterior thigh, likely a lipoma ? ? ? CURRENT MEDICATIONS Current Outpatient Medications Medication Sig Dispense Refill ? omeprazole magnesium (PRILOSEC ORAL) Take by mouth daily at bedtime. ? ? ? dextroamphetamine-amphetamine (ADDERALL) 5 mg tablet Take 1 tablet by mouth two times a day for 30 days. 60 tablet 0 ? ibuprofen (ADVIL) 200 mg tablet Take 200 mg by mouth every 6 hours as needed for pain. ? ? ? acetaminophen (TYLENOL EXTRA STRENGTH) 500 mg tablet Take 500 mg by mouth every 8 hours as needed for pain. ? ? ? melatonin 10 mg tab Take 10 mg by mouth daily at bedtime. ? ? ? Magnesium Oxide 500 mg tab Take 500 mg by mouth once daily. ? ? ? No current facility-administered medications for this visit. ? ? ALLERGIES: Hayfever [Homeopathic Products] ? PERSONAL HISTORY: SOCIAL HISTORY Social History ? Tobacco Use ? Smoking status: Never ? Smokeless tobacco: Never Vaping Use ? Vaping Use: Never used Substance Use Topics ? Alcohol use: Yes ? ? Comment: very rarely ? Drug use: No ? FAMILY HISTORY: FAMILY HISTORY FAMILY HISTORY Problem Relation Age of Onset ? No Known Problems Mother ? ? Diabetes Father ? ? Hypertension Father ? ? Coronary Artery Disease Father ? ? Heart Father ? ? Colon Cancer Father ? ? age 70, stage 3, in remission ? other (Adelia Gehrig) Maternal Grandmother ? ? Heart disease Maternal Grandfather ? ? Heart disease Paternal Grandmother ? ? Breast Cancer Paternal Aunt 40 ? ? REVIEW OF SYMPTOMS: GENERAL: denies fevers or chills ENDOCRINOLOGY: has not been on steroids Cardiology : denies palpitations or chest pain Respiratory: denies SOB or cough Hematology: denies history of prolonged bleeding or easy bruising or VTE Allergy: Denies history of personal or family history of allergy to anesthesia ? PHYSICAL EXAMINATION: ? VITALS: Blood pressure 96/60, pulse 72, resp. rate 16, height 5' 2 (1.575 m), weight 139 lb (63 kg), last menstrual period 11/02/2023, SpO2 100%. ? GENERAL: The patient is well nourished, well hydrated in no acute distress. , The patient is oriented to time, place, and person. NECK: Supple. No lynphadenopathy, normal thyroid, no thyromegaly. LUNGS: Clear to auscultation bilaterally. no wheezes, rhonchi or rales HEART: Regular rate and rhythm, Normal heart sounds, and No murmurs or gallops ? IMPRESSION: dysmenorrhea, menorrhagia, first degree uterine prolapse ? PLAN: The risks/benefits/alternatives and personal involved for the planned total vaginal hysterectomy with possible bilateral salpingectomy were reviewed with the patient. Her questions were answered to her satisfaction and she desires to proceed. Consent was signed. I reviewed with her postop instructions and expectations. ? ? ? I have reviewed and updated past medical and surgical history, medications and allergies Assessment & Plan Assessment/Plan (1) Menorrhagia: (2) Dysmenorrhea: (3) First degree uterine prolapse:
[2023-11-22] MEDS: Cefazolin 2 GM in 0.9% Normal Saline (100mL Bag) 100 ML IV (11:09)
[2023-11-22] MEDS: Lidocaine 1%/Epi 1:200 (30ml) 30 ML AMPUL (11:35)
--- NOTE | 2023-11-22 12:36 | OP.PCM_ITS ---
Problems Associated Problem List Diagnoses (1) First degree uterine prolapse: (2) Dysmenorrhea: (3) Menorrhagia: Report of Operation Date of Procedure: 11/22/23 Pre-Operative Diagnosis: dysmenorrhea, menorrhagia, first degree uterine prolapse Post-Operative Diagnosis: same Surgery/Procedure Performed:: TVH, bilateral salpingectomy and cystoscopy Description of Surgical Findings:: normal cervix, vagina, uterus, tubes and ovaries. First degree uterovaginal prolapse noted Surgeon: Sumi Crews real estate valuer: Justyna Mccarty Type of Anesthesia: General Anesthesiologist: Juan A Fagan Special Medications: none Specimen's removed: uterus, cervix, bilateral fallopian tubes Drains: none Estimated Blood Loss (mL): 150 Fluids Replaced: 1400 Description of Procedure: The patient was taken to the operating room where she was prepped and draped in the normal sterile fashion in the dorsal lithotomy position. A weighted speculum was placed in the vagina and the anterior lip of the cervix was grasped with a Jayde clamp. The vaginal epithelium was infiltrated circumferentially around the cervix with 1% Xylocaine solution. An incision was made around the anterior cervix from 3-9 o'clock with a scalpel and the vaginal epithelium was dissected back with blunt and sharp dissection. The anterior colpotomy incision was made sharply. Entry into the anterior cul-de-sac was confirmed by visualization of the uterine fundus and bowel behind the uterus. The first vaginal clamp was placed around the cervix and posterior vagina and the tissue was clamped with a Juan Alberto clamp, transected with the Belle scissors and suture- ligated. Both pedicles were held. The next clamp contained the anterior peritoneum in the lower part of the cardinal ligament and this was clamped, transected and suture-ligated. Excellent hemostasis was noted. Another small bite was taken on both sides containing the peritoneum and this was clamped, transected and suture-ligated and contained the remainder of the cardinal ligament and the remainder of the uterine arteries. At this point the anterior uterus was brought through the anterior colpotomy incision and the utero ovarian ligaments were clamped, transected and suture-ligated. The remaining portion of the uterosacral ligaments and posterior vaginal cuff were clamped across with ED clamps and the tissue was transected and suture- ligated. I needed a [id number] suture in the midline of the vaginal cuff as the clamps did not quite meet in the midline and the posterior vaginal cuff was attached to the peritoneum with a single suture. The left ovary and tube appeared normal. A Morelia clamp was placed across the left tube and it was transected with the Metzenbaum scissors and suture ligated. The same procedure was performed on the contralateral side. The pedicles were all examined again and found to be hemostatic. The vaginal cuff was then reapproximated horizontally with interrupted 0 Vicryl [id number] sutures. The vaginal cuff was hemostatic and excellent support was noted. The Aaron was removed and a cystoscopy was performed. Both ureteral orifices were noted and ureteral jets were noted on both sides. The bladder itself was grossly normal and the bubble at the dome of the bladder was noted. The bladder was reemptied. The vaginal sweep was completed by me. All sponge lap and needle counts were correct. Patient was awakened and taken to the recovery room in stable condition. No qualified residents were available for the procedure. Dr. Fine performed tissue retraction and manipulation and suction during the procedure. Grafts/Implants Used: none Procedure Start Time: 11:32 Procedure Stop Time: 12:25 Complications none Admit VTE Documentation VTE Present on Admission: No VTE Mechan Device Prophylaxis: SCD's VTE Pharm Prophylaxis ordered?: No Reason prophylaxis not ordered:: Procedure Not Indicated
--- NOTE | 2023-11-22 12:48 | DCINST_ITS ---
Discharge Instructions Diet Discharge Diet: Light diet - advance as tolerated Activity Discharge Activity: May Not Drive (for 7-10 days) May resume sexual activity in: 6-8 weeks and - (Nothing in your vagina for 6 weeks. No vaginal or anal intercourse for 6-8 weeks) Lifting Restrictions: 15 lbs x 6 weeks Dressing / Incision Call your doctor if your incision/area has: Continuous Slow Oozing, Sudden Increased Bleeding and Foul Smelling Discharge Call your doctor if you observe: Fever of 101 or Higher and Using more than 1 pad per hour Follow Up Care Please Follow Up With: Sumi Crews MD When: With my office in 1-2 and 6 weeks or as needed. [phone] call or send a [employer] message as needed for non urgent issues Test Results: Test results from this visit will be discussed in further detail at your follow- up appointment, if applicable. Discharge Plan Admission Primary Reason for Your Visit: Vaginal Hysterectomy Attending Provider: Sumi Crews Primary Care Provider: Laron Wahl Discharge Orders/Prescriptions Prescriptions: New oxycodone 5 mg tablet 5 mg PO Q6H PRN PRN (Reason: severe pain) 5 Days Qty: 10 0RF naproxen 375 mg tablet 375 mg PO BID PRN (Reason: pain) 15 Days Qty: 45 0RF Continued desogestrel-ethinyl estradiol [Naeemeber] 1 EACH tablet 1 tab PO DAILY Patient Comments: dextroamphetamine-amphetamine 5 mg tablet 5 mg PO PRN PRN (Reason: ADHD) Patient Comments: take 1 tablet by mouth twice a day famotidine [Acid Controller] 20 mg tablet 20 mg PO QHS Referrals / Follow Up: Laron Wahl MD [Primary Care Provider] - Disposition Disposition (needs filled in before D/C Order can be placed): Home, Self Care
[2023-11-22] MEDS: Ketorolac 30 MG/ML Syringe IV (13:02)
[2023-11-22] MEDS: Lactated Ringers 1,000 ML 75 ML IV ×2 (13:37→14:09)
[2023-11-22] MEDS: oxyCODONE 5 MG Tablet PO (14:59)
== END 2023-11-22 16:33 | disposition home or self-care (01) ==
LOC: SDC 07:44 → AC 07:46
PROVIDERS: Anesthesiology; PCP Family Medicine; Referring Provider Obstetrics & Gynecology; Visit Provider Obstetrics & Gynecology
PROC: (CPT 58260; principal; 2023-11-22 09:30)
DX: N92.0 Excessive and frequent menstruation with regular cycle (principal); N94.6 Dysmenorrhea, unspecified; N81.2 Incomplete uterovaginal prolapse; N72 Inflammatory disease of cervix uteri; D25.1 Intramural leiomyoma of uterus; K21.9 Gastro-esophageal reflux disease without esophagitis; Z79.899 Other long term (current) drug therapy
CPT/HCPCS: 58262; 00944; 36415; 81025; 82962; 83735; 85027; 86850; 86900; 86901; 88307; J7120; J2405; J3475